=== PATIENT | female | born 1955 | race Caucasian/White ===

== ENCOUNTER 2018-06-05 08:03 | Observation (INO) | payer BC, OTHER ==
[2018-06-05] VITALS (7 sets, daily range): BP systolic 95–123; BP diastolic 56–70
[~2018-06-05] VITALS: Ht 172.7 cm; Wt 59.6 kg
[2018-06-05] MEDS ORDERED: NITROGLYCERIN 2% OINT 1 GM PKT TOP STA (08:05)
[2018-06-05] MEDS ORDERED: ASPIRIN 81 MG CHEW TAB PO STA (08:05)
[2018-06-05] MEDS ORDERED: ASPIRIN 81 MG CHEW TAB PO ONE (08:15)
[2018-06-05] MEDS ORDERED: ALBUTEROL SULF 0.083% NEB SOLN 3 ML NEB ONE (08:19)
[2018-06-05] MEDS ORDERED: IPRATROPIUM BROMIDE 0.02% 2.5 ML NEB ONE (08:19)
[2018-06-05] MEDS ORDERED: MAGNESIUM SULFATE 2GM/50ML 50 ML IV ONE (08:45)
[2018-06-05 08:52] LABS: BASOPHILS # (AUTO) 0.1 (0.0-0.1); BASOPHILS % 0.3 % (0.0-1.0); HEMATOCRIT 43.3 % (34.2-44.1); HEMOGLOBIN 15.2 g/dL (12.0-16.0); LYMPHOCYTES % 3.5 % (18.0-39.1); MEAN CORPUSCULAR HEMOGLOBIN 33.1 pg (28-32); MEAN CORPUSCULAR HGB CONC 35.1 g/dL (31-35); MEAN CORPUSCULAR VOLUME 94.3 fL (81-99); MONOCYTES # (AUTO) 2.1 (0.2-0.8); MONOCYTES % 7.6 % (4.4-11.3); NEUTROPHILS % 87.9 % (38.7-80.0); PLATELET COUNT 234 x10e3/uL (140-360); RED BLOOD COUNT 4.59 x10e6/uL (3.6-5.1); RED CELL DISTRIBUTION WIDTH 13.1 % (11.7-14.4)
[2018-06-05] MEDS ORDERED: METHYLPREDNISOLONE SOD SUCC 125 MG/2ML VIAL IV NR (09:00)
[2018-06-05 09:05] LABS: ALANINE AMINOTRANSFERASE 30 IU/L (0-55); ALBUMIN 3.9 g/dL (3.5-5.0); ALKALINE PHOSPHATASE 78 IU/L (40-150); BLOOD UREA NITROGEN 20 mg/dL (7-26); BUN/CREATININE RATIO 15 (6-25); CALCIUM 10.4 mg/dL (8.4-10.2); CARBON DIOXIDE 27 mmol/L (22-29); CHLORIDE 88 mmol/L (98-107); CREATINE KINASE 52 IU/L (29-168); CREATININE, SERUM 1.33 mg/dL (0.57-1.11); EST GLOMERULAR FILTRATION RATE 40 ML/MIN (60-); GLUCOSE 95 mg/dL (74-118); SODIUM 129 mmol/L (136-145)
[2018-06-05] MEDS ORDERED: AZITHROMYCIN 500MG/NS 250 ML 250 ML IV STA (09:22)
[2018-06-05] MEDS ORDERED: CEFTRIAXONE SOD 1 GM VIAL IM ONE (09:30)
[2018-06-05 09:48] LABS: INR 1.04; PROTHROMBIN TIME 14.5 seconds (11.9-14.5)
[2018-06-05 09:49] LABS: PARTIAL THROMBOPLASTIN TIME 29.7 seconds (23.8-35.5)
[2018-06-05] MEDS ORDERED: SODIUM CHLORIDE 0.9% 500ML 500 ML IV ONE (10:30)
[2018-06-05 10:42] LABS: ABG HCO3 28 mmol/L (23-28); ABG PCO2 43 mmHg (41-51); ABG PH 7.42 (7.31-7.41); ABG PO2 76 mmHg (80-105)
--- NOTE | 2018-06-05 12:08 | Diagnostic Imaging Report ---
EXAM: CT Abdomen and Pelvis WITH contrast INDICATION: Abdominal Pain COMPARISON: None. TECHNIQUE: Abdomen and pelvis were scanned utilizing a multidetector helical scanner from the lung base to the pubic symphysis after administration of IV contrast. Coronal and sagittal reformations were obtained. Routine protocol was performed. Scan was performed when during portal venous phase. IV CONTRAST: Isovue 370 ORAL CONTRAST: Water COMPLICATIONS: None RADIATION DOSE: Total DLP: 209.1 mGy*cm Estimated effective dose: (DLP x 0.015 x size factor) mSv CTDIvol has been reviewed. It is below the limits set by the Radiation Protocol Committee (RPC). FINDINGS: LINES and TUBES: None. LOWER THORAX: There is bronchial wall thickening with bilateral tree-in-bud opacities at the lung bases. HEPATOBILIARY: Diffuse fatty liver. There is a 9 mm arterially enhancing lesion in the right hepatic lobe on series 2, image 19. No biliary ductal dilation. GALLBLADDER: There are stones in the gallbladder. No wall thickening. SPLEEN: No splenomegaly. PANCREAS: No focal masses or ductal dilatation. ADRENALS: No adrenal nodules KIDNEYS/URETERS: Kidneys enhance symmetrically. A 1 cm hypodense lesion in the right upper pole kidney is too small to characterize but likely represents a cyst. No evidence of hydronephrosis or stone. GI TRACT: No evidence of wall thickening or distension. Appendix is not clearly identified. There is however no fat stranding or adenopathy in the right lower quadrant to suggest appendicitis. Moderate hiatal hernia. PELVIC ORGANS/BLADDER: Unremarkable. LYMPH NODES: No lymphadenopathy. VESSELS: There are extensive atherosclerotic disease in the aorta and major arterial branches. PERITONEUM / RETROPERITONEUM: No free air or fluid. BONES AND SOFT TISSUES: Degenerative changes of the visualized spine. CONCLUSION: Cholelithiasis without CT evidence of cholecystitis. Diffuse fatty liver. A 9 mm arterially enhancing lesion in the right hepatic lobe. In a low risk patient, this likely represents a benign finding such as flash filling hemangioma. If the patient is at higher risk for malignancy, a follow-up MRI may be considered in 3-6 months. Signed by: Dr. Daniela Eden MD on 06/05/2018 12:04 PM
[2018-06-05] MEDS ORDERED: AZITHROMYCIN 500MG/NS 250 ML 250 ML IV SCH (12:30)
--- NOTE | 2018-06-05 12:36 | Diagnostic Imaging Report ---
PROCEDURE: A single AP view of the chest. COMPARISON: None. INDICATIONS: CHEST PAIN, SHORTNESS OF BREATH FINDINGS: Lines/tubes: None. Lungs: The lungs are hyperinflated. There is no evidence of pneumonia or pulmonary edema. Two subcentimeter nodular opacities project over the left upper hemithorax. Pleura: There is no pleural effusion or pneumothorax. Heart and mediastinum: The cardiomediastinal silhouette is unremarkable. Bones: No acute bony abnormality. IMPRESSION: Emphysematous changes of the lungs without evidence of pneumonia. Two subcentimeter nodular opacities project over the left hemithorax. These may represent pulmonary nodules and a chest CT is suggested for further evaluation. Dictated by: VIKTORIA BURNS M.D. on 06/05/2018 at 9:03 Electronically approved by: VIKTORIA BURNS M.D. on 06/05/2018 at 9:03
[2018-06-05] MEDS: ALBUTEROL SULF 0.083% NEB SOLN 3 ML NEB NEB SCH ×2 (13:00→19:50)
[2018-06-05 13:02] LABS: ANISOCYTOSIS SLIGHT; LYMPHOCYTES % (MANUAL) 4 % (19-48); MONOCYTES % (MANUAL) 3 % (3.4-9.0); NEUTROPHILS % (MANUAL) 92 % (40-74); PLATELET ESTIMATE ADEQUATE; PLATELET MORPHOLOGY COMMENT NORMAL; RBC MORPHOLOGY COMMENT NORMAL
[2018-06-05 13:44] LABS: CLARITY,URINE SL CLOUDY (CLEAR); COLOR,URINE YELLOW (YELLOW)
[2018-06-05 13:45] LABS: BILIRUBIN,URINE NEGATIVE (NEGATIVE); KETONES,URINE TRACE (NEGATIVE); LEUKOCYTE ESTERASE ,URINE NEGATIVE (NEGATIVE); NITRITE,URINE NEGATIVE (NEGATIVE); PROTEIN,URINE DIPSTICK NEGATIVE (NEGATIVE); URINE UROBILINOGEN 0.2 mg/dL (0.2 - 1)
[2018-06-05 13:57] LABS: BACTERIA,URINE FEW /HPF; EPITHELIAL CELLS,URINE MODERATE /LPF
[2018-06-05] MEDS: METHYLPREDNISOLONE SOD SUCC 125 MG/2ML VIAL IV SCH ×2 (14:00→21:10)
[2018-06-05] MEDS ORDERED: SODIUM CHLORIDE 0.9% 50ML 50 ML ONE (14:05)
[2018-06-05] MEDS ORDERED: IOPAMIDOL 370 MG/ML 200 ML INFUS..BTL INJ ONE (14:05)
[2018-06-05] MEDS ORDERED: LEVAQUIN500 MG PO (14:55)
[2018-06-05] MEDS ORDERED: AMBIEN10 MG PO (14:55)
[2018-06-05] MEDS ORDERED: HYDROCHLOROTHIA25 MG PO (14:55)
[2018-06-05] MEDS ORDERED: PRO-AIR (14:55)
[2018-06-05] MEDS ORDERED: LISINOPRIL10 MG PO (14:55)
[2018-06-05] MEDS ORDERED: VALIUM10 MG PO (14:55)
[2018-06-05] MEDS ORDERED: PREDNISONE20 MG PO (14:55)
[2018-06-05 16:41] LABS: CREATINE KINASE 37 IU/L (29-168)
[2018-06-05] MEDS ORDERED: NON-FORMULARY MEDICATION (Diazepam (Valium) 10 MG) PO SCH (21:00)
[2018-06-05] MEDS: DIAZEPAM 5 MG TAB PO SCH (21:00)
[2018-06-05] MEDS ORDERED: ZOLPIDEM TARTRATE 10 MG TAB PO PRN (21:00)
[2018-06-06 00:23] LABS: CREATINE KINASE 44 IU/L (29-168)
[2018-06-06] MEDS: ALBUTEROL SULF 0.083% NEB SOLN 3 ML NEB NEB SCH ×2 (01:45→07:52)
[2018-06-06 05:00] VITALS: BP 128/77
[2018-06-06 05:34] LABS: BASOPHILS % 0.1 % (0.0-1.0); HEMATOCRIT 34.9 % (34.2-44.1); HEMOGLOBIN 12.3 g/dL (12.0-16.0); LYMPHOCYTES # (AUTO) 0.4 (1.0-3.2); LYMPHOCYTES % 2.2 % (18.0-39.1); MEAN CORPUSCULAR HEMOGLOBIN 32.8 pg (28-32); MEAN CORPUSCULAR HGB CONC 35.2 g/dL (31-35); MEAN CORPUSCULAR VOLUME 93.1 fL (81-99); MONOCYTES # (AUTO) 0.3 (0.2-0.8); MONOCYTES % 1.9 % (4.4-11.3); NEUTROPHILS # (AUTO) 15.1 (2.1-6.9); NEUTROPHILS % 95.2 % (38.7-80.0); PLATELET COUNT 189 x10e3/uL (140-360); RED BLOOD COUNT 3.75 x10e6/uL (3.6-5.1); RED CELL DISTRIBUTION WIDTH 12.9 % (11.7-14.4)
[2018-06-06 05:57] LABS: ANION GAP 13.1 mmol/L (8-16); BLOOD UREA NITROGEN 20 mg/dL (7-26); BUN/CREATININE RATIO 20 (6-25); CALCIUM 9.8 mg/dL (8.4-10.2); CARBON DIOXIDE 30 mmol/L (22-29); CHLORIDE 94 mmol/L (98-107); CREATINE KINASE 43 IU/L (29-168); CREATININE, SERUM 1.02 mg/dL (0.57-1.11); EST GLOMERULAR FILTRATION RATE 55 ML/MIN (60-); GLUCOSE 138 mg/dL (74-118); POTASSIUM 4.1 mmol/L (3.5-5.1); SODIUM 133 mmol/L (136-145)
[2018-06-06] MEDS: METHYLPREDNISOLONE SOD SUCC 125 MG/2ML VIAL IV SCH (06:00)
[2018-06-06 06:58] LABS: LYMPHOCYTES % (MANUAL) 2 % (19-48); MONOCYTES % (MANUAL) 1 % (3.4-9.0); NEUTROPHILS % (MANUAL) 97 % (40-74); PLATELET ESTIMATE ADEQUATE; PLATELET MORPHOLOGY COMMENT NORMAL; RBC MORPHOLOGY COMMENT NORMAL
[2018-06-06 08:09] VITALS: BP 105/62
[2018-06-06 08:32] VITALS: BP 105/62
[2018-06-06] MEDS ORDERED: LISINOPRIL 10 MG TAB PO SCH (09:00)
[2018-06-06] MEDS ORDERED: LISINOPRIL 20 MG TAB PO SCH (09:00)
[2018-06-06] MEDS ORDERED: HYDROCHLOROTHIAZIDE 25 MG TAB PO SCH (09:00)
[2018-06-06] MEDS: DIAZEPAM 5 MG TAB PO SCH (09:12)
[2018-06-06] MEDS ORDERED: PREDNISONE20 MG PO (09:34)
[2018-06-06] MEDS ORDERED: LEVAQUIN500 MG PO (09:35)
--- NOTE | 2018-06-06 09:40 | Diagnostic Imaging Report ---
EXAM: CT Chest WITHOUT contrast INDICATION: \S\pulm nodules on xray \[id number] \S\[id number] COMPARISON: Abdominal CT 06/05/2018 TECHNIQUE: Chest was scanned utilizing a multidetector helical scanner from the lung apex through the level of the adrenal glands without administration of IV contrast. Absence of intravenous contrast decreases sensitivity for detection of lymphadenopathy and vascular pathology. Coronal and sagittal reformations were obtained. Routine protocol was performed. IV CONTRAST: None COMPLICATIONS: None RADIATION DOSE: Total DLP: 321.68 mGy*cm Estimated effective dose: (DLP x 0.014 x size factor) mSv CTDIvol has been reviewed. It is below the limits set by the Radiation Protocol Committee (RPC). FINDINGS: LINES/ TUBES: None. LUNGS AND AIRWAYS: Scattered nodular and tree-in-bud opacities with bronchial wall thickening and scattered areas of mucous plugging. Centrilobular changes noted. No focal consolidations. Secretions in the trachea. PLEURA: The pleural spaces are clear. HEART AND MEDIASTINUM: The thyroid gland is normal. No mediastinal, hilar or axillary lymphadenopathy. The heart is normal in size.. There is no pericardial effusion. Main pulmonary artery measures 2.7 cm, within normal limits. Ascending aorta measures 2.9 cm, within normal limits. Mild aortic calcifications. UPPER ABDOMEN: Small hiatal hernia with distal esophageal wall thickening which may suggest reflux esophagitis. Right retrocrural 1.3 cm cystic structure likely representing a lymphocele of the thoracic duct. New high attenuation within a 0.9 cm previously hypoattenuating structure in the posterior superior pole of the right kidney may represent retained excreted contrast in a calyceal diverticulum or dilated calyx or interval hemorrhage within a cyst. Punctate nonobstructing calculus in the superior left renal pole. Punctate gallstone. BONES: There are degenerative changes in the thoracic spine. SOFT TISSUES: Unremarkable. IMPRESSION: Scattered nodular and tree-in-bud opacities with bronchial wall thickening and mucous plugging in a background of emphysema. Findings suggestive of bronchitis with possible superimposed atypical infection. Recommend follow-up chest CT in 6 months to document resolution and exclude any non-infectious/inflammatory pulmonary nodule. Signed by: DR. Zhang Montesinos MD on 06/06/2018 9:37 AM
[2018-06-06 11:45] VITALS: BP 114/68
--- OUTSIDE RECORDS SUMMARY | 2018-06-16 11:11 | XMS REPORT ---
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 Allergies, Adverse Reactions, Alerts This patient has no known allergies or adverse reactions. Medications This patient has no known medications. Results Test Description Test Time Test Comments Text Results Atomic Results Result Comments CT CHEST WO 2018-06-06 09:05:00 [place] [address] Patient Name: SHIVA RIVAS MR #: [id number] : 1955 Age/Sex: 63/F Req #: [id number] Adm Physician: TI RODRIGUES MD Ordered by: TI RODRIGUES MD Report #: [id number] Location: [facility] Room/Bed: [place] [address] Procedure: [id number] CT/CT CHEST WO Exam Date: 06/06/18 Exam Time: 0841 REPORT STATUS: Signed EXAM: CT Chest WITHOUT contrast INDICATION: COMPARISON: Abdominal CT 06/05/2018 TECHNIQUE: Chest was scanned utilizing a multidetector helical scanner from the lung apex through the level of the a drenal glands without administration of IV contrast. Absence of intravenous contrast decreases sensitivity for detection of lymphadenopathy and vascular pathology. Coronal and sagittal reformations were obtained. Routine protocol was performed. IV CONTRAST: None COMPLICATIONS: None RADIATION DOSE: Total DLP: 321.68 mGy*cm Estimated effective dose: (DLP x 0.014 x size factor) mSv CTDIvol has been reviewed. It is below the limits set by the Radiation Protocol Committee (RPC). FINDINGS: LINES/ TUBES: None. LUNGS AND AIRWAYS: Scattered nodular and tree-in-bud opacities with bronchial wall thickening and scattered areas of mucous plugging. Centrilobular changes noted. No focal consolidations. Secretions in the trachea. PLEURA: The pleural spaces are clear. HEART AND MEDIASTINUM: The thyroid gland is normal. No mediastinal, hilar or axillary lymphadenopathy. The heart is normal in size.. There is no pericard ial effusion. Main pulmonary artery measures 2.7 cm, within normal limits. Ascending aorta measures 2.9 cm, within normal limits. Mild aortic calcifications. UPPER ABDOMEN: Small hiatal hernia with distal esophageal wall thickening which may suggest reflux esophagitis. Right retrocrural 1.3 cm cystic structure likely representing a lymphocele of the thoracic duct. New high attenuation within a 0.9 cm previously hypoattenuating structure in the posterior superior pole of the right kidney may represent retained excreted contrast in a calyceal diverticulum or dilated calyx or interval hemorrhage within a cyst. Punctate nonobstructing calculus in the superior left renal pole. Punctate gallstone. BONES: There are degenerative changes in the thoracic spine. SOFT TISSUES: Unremarkable. IMPRESSION: Scattered nodular and tree-in-bud opacities with bronchial wall thickening and mucous plugging in a background of emphysema. Findings suggestive of bronchitis with possible superimposed atypical infection. Recommend follow-up chest CT in 6 months to document resolution and exclude any non-infectious/inflammatory pulmonary nodule. Signed by: DR. Zhang Soares MD on 06/06/2018 9:37 AM Dictated By: ZHANG SOARES MD 6 Transcribed By: MELANY on 06/06/18936 COPY TO: TI RODRIGUES MD CT ABDOMEN/PELVIS W 2018-06-05 11:50:00 [place] [address] Patient Name: SHIVA RIVAS MR #: [id number] : 1955 Age/Sex: 63/F Req #: [id number] [facility] Physician: Ordered by: HAZEL COOK MD Report #: [id number] Location: ER Room/Bed: Procedure: [id number] CT/CT ABDOMEN/PELVIS W Exam Date: 06/05/18 Exam Time: 1110 REPORT STATUS: Signed EXAM: CT Abdomen and Pelvis WITH contrast INDICATION: Abdominal Pain COMPARISON: None. TECHNIQUE: Abdomen and pelvis were scanned utilizing a multidetector helical scanner from the lung base to the pubic symphysis after administration of IV contrast. Coronal and sagittal reformations were obtained. Routine protocol was performed. Scan was performed when during portal venous phase. IV CONTRAST: Isovue 370 ORAL CONTRAST: Water COMPLICATIONS: None RADIATION DOSE: Total DLP: 209.1 mGy*cm Estimated effective dose: (DLP x 0.015 x size factor) mSv CTDIvol has been reviewed. It is below the limits set by the Radiation Protocol Committee (RPC). FINDINGS: LINES and TUBES: None. LOWER THORAX: There is bronchial wall thickening with bilateral tree-in-bud opacities at the lung bases. HEPATOBILIARY: Diffuse fatty liver. There is a 9 mm arterially enhancing lesion in the right hepatic lobe on series 2, image 19. No biliary ductal dilation. GALLBLADDER: There are stones in the gallbladder. No wall thickening. SPLEEN: No splenomegaly. PANCREAS: No focal masses or ductal dilatation. ADRENALS: No adrenal nodules KIDNEYS/URETERS: Kidneys enhance symmetrically. A 1 cm hypodense lesion in the right upper pole kidney is too small to characterize but likely represents a cyst. No evidence of hydronephrosis or stone. GI TRACT: No evidence of wall thickening or distension. Appendix is not clearly identified. There is however no fat stranding or adenopathy in the right lower quadrant to suggest appendicitis. Moderate hiatal hernia. PELVIC ORGANS/BLADDER: Unremarkable. LYMPH NODES: No lymphadenopathy. VESSELS: There are extensive atherosclerotic disease in the aorta and major arterial branches. PERITONEUM / RETROPERITONEUM: No free air or fluid. BONES AND SOFT TISSUES: Degenerative changes of the visualized spine. CONCLUSION: Cholelithiasis without CT evidence of cholecystitis. Diffuse fatty liver. A 9 mm arterially enhancing lesion in the right hepatic lobe. In a low risk patient, this likely represents a benign finding such as flash filling hemangioma. If the patient is at higher risk for malignancy, a follow-up MRI may be considered in 3-6 months. Signed by: Dr. Viktoria Burns MD on 06/05/2018 12:04 PM Dictated By: VIKTORIA BURNS MD 1204 Transcribed By: MELANY on 06/05/18 120 COPY TO: HAZEL COOK MD CHEST SINGLE (PORTABLE) 2018-06-05 09:03:00 [place] [address] Patient Name: SHIVA RIVAS MR #: [id number] : 1955 Age/Sex: 63/F Req #: [id number] Adm Physician: Ordered by: HAZEL COOK MD Report #: [id number] Location: ER Room/Bed: Procedure: [id number] DX/CHEST SINGLE (PORTABLE) Exam Date: 06/05/18 Exam Time: 0810 REPORT STATUS: Signed PROCEDURE: A single AP view of the chest. COMPARISON: None. INDICATIONS: CHEST PAIN, SHORTNESS OF BREATH FINDINGS: Lines/tubes: None. Lungs: The lungs are hyperinflated. There is no evidence of pneumonia or pulmonary edema. Two subcentimeter nodular opacities project over the left upper hemithorax. Pleura: There is no pleural effusion or pneumothorax. Heart and mediastinum: The cardiomediastinal silhouette is unremarkable. Bones: No acute bony abnormality. IMPRESSION: Emphysematous changes of the lungs without evidence of pneumonia. Two subcentimeter nodular opacities project over the left hemithorax. These may represent pulmonary nodules and a chest CT is suggested for further evaluation. Dictated by: VIKTORIA BURNS M.D. on 06/05/2018 at 9:03 Electronically approved by: VIKTORIA BURNS M.D. on 06/05/2018 at 9:03 Dictated By: VIKTORIA BURNS MD 2 Transcribed By: EDU on 06/05/18902 COPY TO: HAZEL COOK MD
--- NOTE | 2018-08-15 19:24 | Discharge Summary ---
DISCHARGE DIAGNOSIS: Acute exacerbation of chronic obstructive pulmonary disease. HISTORY OF PRESENT ILLNESS AND HOSPITAL COURSE: Patient is a 63-year-old lady who presented with acute onset of cough and congestion for few days with a history of COPD where she was having acute exacerbation of COPD. She was brought in and placed on O2, nebs, steroids, and IV antibiotics where she made significant improvement. She was able to be discharged home in good condition to follow up in 1 to 2 weeks with me. Please see hospital chart for full details. TI RODRIGUES MD Job#: [id number] ASHLEY
== END 2018-06-06 12:35 | disposition home or self-care (01) ==
LOC: ER 08:03 → ERHOLD 12:43 → IMCU 14:26
PROVIDERS: ADMIT Internal Medicine; ATTEND Internal Medicine
DX: J44.1 Chronic obstructive pulmonary disease with (acute) exacerbation (principal); F17.210 Nicotine dependence, cigarettes, uncomplicated; M79.10 Myalgia, unspecified site; I10 Essential (primary) hypertension; Z82.49 Family history of ischemic heart disease and other diseases of the circulatory system; Z88.5 Allergy status to narcotic agent
CPT/HCPCS: 36415 ×2; 71045; 71250; 74177; 80048; 80053; 81001; 82550 ×2; 82553 ×2; 82805; 83605; 83690; 83880; 84484 ×2; 85025 ×2; 85610; 85730; 87040; 93005; 94640 ×4; 94660 ×2; 99284; G0378 ×2; J0456; J0696; J2930 ×2; J7040; Q9967; 36600; J3475

== ENCOUNTER 2018-11-16 11:05 | Emergency (ER) | payer OTHER ==
[~2018-11-16] VITALS: Ht 172.7 cm; Wt 59.4 kg
[~2018-11-16 11:05] MED LIST: AMBIEN10 MG PO; HYDROCHLOROTHIA25 MG PO; LEVAQUIN500 MG PO; LISINOPRIL10 MG PO; PREDNISONE20 MG PO; PRO-AIR; VALIUM10 MG PO
[2018-11-16] MEDS ORDERED: ASPIRIN 325 MG TAB PO ONE (11:15)
[2018-11-16 11:33] LABS: BASOPHILS % 0.3 % (0.0-1.0); EOSINOPHILS # (AUTO) 0.1 (0.0-0.4); EOSINOPHILS % 0.7 % (0.0-6.0); HEMATOCRIT 42.5 % (34.2-44.1); HEMOGLOBIN 14.7 g/dL (12.0-16.0); LYMPHOCYTES % 7.1 % (18.0-39.1); MEAN CORPUSCULAR HGB CONC 34.6 g/dL (31-35); MEAN CORPUSCULAR VOLUME 92.4 fL (81-99); MONOCYTES # (AUTO) 1.3 (0.2-0.8); MONOCYTES % 9.3 % (4.4-11.3); NEUTROPHILS # (AUTO) 11.3 (2.1-6.9); NEUTROPHILS % 82.2 % (38.7-80.0); PLATELET COUNT 247 x10e3/uL (140-360); RED CELL DISTRIBUTION WIDTH 12.8 % (11.7-14.4)
[2018-11-16 11:40] LABS: INR 0.91; PROTHROMBIN TIME 12.7 seconds (11.9-14.5)
[2018-11-16 11:41] LABS: PARTIAL THROMBOPLASTIN TIME 26.7 seconds (23.8-35.5)
[2018-11-16 11:49] LABS: ALANINE AMINOTRANSFERASE 118 IU/L (0-55); ALBUMIN 3.4 g/dL (3.5-5.0); ALBUMIN/GLOBULIN RATIO 0.8 (0.8-2.0); ALKALINE PHOSPHATASE 83 IU/L (40-150); ANION GAP 14.8 mmol/L (8-16); BLOOD UREA NITROGEN 19 mg/dL (7-26); BUN/CREATININE RATIO 16 (6-25); CALCIUM 9.3 mg/dL (8.4-10.2); CARBON DIOXIDE 32 mmol/L (22-29); CHLORIDE 87 mmol/L (98-107); CREATINE KINASE 53 IU/L (29-168); CREATININE, SERUM 1.22 mg/dL (0.57-1.11); EST GLOMERULAR FILTRATION RATE 45 ML/MIN (60-); GLUCOSE 80 mg/dL (74-118); POTASSIUM 3.8 mmol/L (3.5-5.1); SODIUM 130 mmol/L (136-145)
--- NOTE | 2018-11-16 13:07 | Diagnostic Imaging Report ---
EXAM: CHEST 2 VIEWS DATE: 11/16/2018 11:22 AM INDICATION: Chest pain COMPARISON: Chest CT, 06/06/2018 FINDINGS: Lines and tubes: None Heart size normal. No focal pulmonary opacity, pleural effusion or pneumothorax. The lungs are hyperinflated compatible with COPD or airway disorder. Upper abdomen unremarkable. No acute bony abnormality. IMPRESSION: No evidence for acute disease. Hyperinflation of the lungs, similar to the previous exam, compatible with COPD or bronchitis. No consolidative pneumonia or pleural effusion. Signed by: Dr. Venancio Pitt M.D. on 11/16/2018 1:04 PM
[2018-11-16] MEDS ORDERED: SODIUM CHLORIDE 0.9% 250ML 500 ML ONE (14:03)
--- NOTE | 2018-11-16 16:06 | Diagnostic Imaging Report ---
EXAMINATION: CT scan of the chest with contrast. TECHNIQUE: Helical CT images of the chest were performed from the lung apices to the level of the adrenal glands after the intravenous administration of 100 cc of Isovue 300. Coronal and sagittal reformatted images were obtained. Dose modulation, iterative reconstruction, and/or weight based adjustment of the mA/kV was utilized to reduce the radiation dose to as low as reasonably achievable. COMPARISON: None. CLINICAL HISTORY:Chest pain, evaluate for pulmonary embolism DISCUSSION: LINES/TUBES: None. LUNGS AND AIRWAYS: Centrilobular emphysema. Scattered tree-in-bud nodularity in a peripheral distribution most prominent in the right lower lobe, lingula, and left lower lobe. No pulmonary embolism. PLEURA: No pneumothorax or pleural effusions. HEART AND MEDIASTINUM: The thyroid gland is normal. The heart and pericardium are within normal limits. LYMPH NODES: There is no mediastinal, hilar or axillary lymphadenopathy. ABDOMEN: Limited contrast-enhanced views of the upper abdomen show no abnormality within the visualized liver, spleen, pancreas, or kidneys. The adrenal glands are normal. BONES AND SOFT TISSUES: No acute bony abnormalities. IMPRESSION: No pulmonary embolism. Pulmonary emphysema. Tree-in-bud nodular opacities within the lungs may reflect chronic aspiration or bronchiolitis including SEYMOUR infection. Signed by: Dr. Kirk Reaves M.D. on 11/16/2018 4:03 PM
[2018-11-16 16:12] LABS: AMPHETAMINES SCREEN,URINE NEGATIVE (NEGATIVE); BENZODIAZEPINES SCREEN,URINE POSITIVE (NEGATIVE); BILIRUBIN,URINE NEGATIVE (NEGATIVE); CLARITY,URINE CLEAR (CLEAR); COLOR,URINE YELLOW (YELLOW); KETONES,URINE NEGATIVE (NEGATIVE); LEUKOCYTE ESTERASE ,URINE NEGATIVE (NEGATIVE); NITRITE,URINE NEGATIVE (NEGATIVE); PHENCYCLIDINE SCREEN,URINE NEGATIVE (NEGATIVE); PROTEIN,URINE DIPSTICK NEGATIVE (NEGATIVE); URINE UROBILINOGEN 0.2 mg/dL (0.2 - 1)
[2018-11-16] MEDS ORDERED: IOPAMIDOL 370 MG/ML 200 ML INFUS..BTL INJ ONE (22:26)
[2018-11-16] MEDS ORDERED: SODIUM CHLORIDE 0.9% 50ML 50 ML ONE (22:26)
== END 2018-11-16 18:45 | disposition home or self-care (01) ==
LOC: ER 11:05
DX: R07.2 Precordial pain (principal); R06.00 Dyspnea, unspecified; R11.2 Nausea with vomiting, unspecified; I10 Essential (primary) hypertension; J44.9 Chronic obstructive pulmonary disease, unspecified; F17.210 Nicotine dependence, cigarettes, uncomplicated
CPT/HCPCS: 36415; 71046; 71260; 80053; 80307; 81001; 82550; 82553; 83880; 84484; 85025; 85379; 85610; 85730; 99284; J7050; Q9967

== ENCOUNTER 2019-07-02 10:43 | Observation (INO) | payer OTHER ==
[~2019-07-02] VITALS: Ht 175.3 cm; Wt 58.3 kg
[2019-07-02] MEDS ORDERED: IPRATROPIUM BROMIDE 0.02% 2.5 ML NEB NEB STA (10:51)
[2019-07-02] MEDS ORDERED: SODIUM CHLORIDE 0.9% 1000ML 1,000 ML IV STA (10:51)
[2019-07-02 11:38] LABS: BASOPHILS % 0.3 % (0.0-1.0); EOSINOPHILS % 0.5 % (0.0-6.0); HEMATOCRIT 43.7 % (34.2-44.1); HEMOGLOBIN 15.6 g/dL (12.0-16.0); LYMPHOCYTES # (AUTO) 0.6 (1.0-3.2); LYMPHOCYTES % 10.8 % (18.0-39.1); MEAN CORPUSCULAR HGB CONC 35.7 g/dL (31-35); MEAN CORPUSCULAR VOLUME 92.4 fL (81-99); MONOCYTES # (AUTO) 0.7 (0.2-0.8); MONOCYTES % 11.6 % (4.4-11.3); NEUTROPHILS # (AUTO) 4.5 (2.1-6.9); NEUTROPHILS % 76.5 % (38.7-80.0); PLATELET COUNT 176 x10e3/uL (140-360); RED BLOOD COUNT 4.73 x10e6/uL (3.6-5.1); RED CELL DISTRIBUTION WIDTH 12.8 % (11.7-14.4)
[2019-07-02 12:05] LABS: ABG HCO3 29 mmol/L (23-28); ABG PCO2 45 mmHg (41-51); ABG PH 7.42 (7.31-7.41); ABG PO2 73 mmHg (80-105)
[2019-07-02 12:13] LABS: ALANINE AMINOTRANSFERASE 40 IU/L (0-55); ALBUMIN 3.9 g/dL (3.5-5.0); ALBUMIN/GLOBULIN RATIO 1.5 (0.8-2.0); ALKALINE PHOSPHATASE 62 IU/L (40-150); ANION GAP 13.8 mmol/L (8-16); BLOOD UREA NITROGEN 23 mg/dL (7-26); BUN/CREATININE RATIO 21 (6-25); CALCIUM 9.4 mg/dL (8.4-10.2); CARBON DIOXIDE 31 mmol/L (22-29); CHLORIDE 84 mmol/L (98-107); CREATININE, SERUM 1.11 mg/dL (0.57-1.11); EST GLOMERULAR FILTRATION RATE 49 ML/MIN (60-); GLUCOSE 99 mg/dL (74-118); POTASSIUM 3.8 mmol/L (3.5-5.1); SODIUM 125 mmol/L (136-145)
[2019-07-02 12:25] LABS: CREATINE KINASE 63 IU/L (29-168)
[2019-07-02 13:42] LABS: BILIRUBIN,URINE NEGATIVE (NEGATIVE); CLARITY,URINE CLEAR (CLEAR); COLOR,URINE YELLOW (YELLOW); KETONES,URINE NEGATIVE (NEGATIVE); LEUKOCYTE ESTERASE ,URINE NEGATIVE (NEGATIVE); NITRITE,URINE NEGATIVE (NEGATIVE); PROTEIN,URINE DIPSTICK NEGATIVE (NEGATIVE); URINE UROBILINOGEN 0.2 mg/dL (0.2 - 1)
[2019-07-02 13:59] LABS: EPITHELIAL CELLS,URINE FEW /LPF; RBC,URINE 0-5 /HPF (0-5)
[2019-07-02 14:03] LABS: BACTERIA,URINE MODERATE /HPF
[2019-07-02] MEDS ORDERED: SODIUM CHLORIDE 0.9% 50ML 50 ML ONE (15:11)
[2019-07-02] MEDS ORDERED: IOPAMIDOL 370 MG/ML 200 ML INFUS..BTL INJ ONE (15:11)
--- NOTE | 2019-07-02 15:13 | Diagnostic Imaging Report ---
TECHNIQUE: CT of the chest WITH intravenous contrast (pulmonary embolism protocol). Dose modulation, iterative reconstruction, and/or weight-based adjustment of the mA/kV was utilized to reduce the radiation dose to as low as reasonably achievable. INDICATION: 64-year-old woman with hypoxia. COMPARISON: Chest CT 11/16/2018. FINDINGS: LINES/TUBES: None. PULMONARY ARTERIES: Proximal to the bifurcation of the main pulmonary artery, the main pulmonary artery is 2.2 cm in diameter. No filling defects within the pulmonary arteries to suggest pulmonary embolus. LUNGS AND AIRWAYS: Moderate emphysema with biapical pleural-parenchymal scarring. Bronchial wall thickening with trace mucus/debris scattered in the airways. Mild tree-in-bud/centrilobular nodular opacities bilaterally. PLEURA: The pleural spaces are clear. HEART AND MEDIASTINUM: The visualized thyroid gland is normal. No significant mediastinal, hilar, or axillary lymphadenopathy. The heart and pericardium are within normal limits. Moderate hiatal hernia. SOFT TISSUES AND BONES: Degenerative changes of the visualized spine. Soft tissues are unremarkable. UPPER ABDOMEN: Questionable nodular contour of the partially visualized left hepatic lobe; cirrhosis cannot be excluded. 1.1 x 1.2 cm cyst in the right kidney. IMPRESSION: No pulmonary embolus. Pulmonary findings suggestive of infectious bronchitis/bronchiolitis versus aspiration. Moderate emphysema. Signed by: Hu Zee MD on 07/02/2019 3:09 PM
[2019-07-02] MEDS: ALBUTEROL SULF 0.083% NEB SOLN 3 ML NEB NEB SCH ×2 (19:45→23:30)
[2019-07-02] MEDS: SODIUM CHLORIDE 0.9% 1000ML 1,000 ML IV SCH ×2 (20:03→23:10)
[2019-07-02] MEDS: METHYLPREDNISOLONE SOD SUCC 40 MG/ML VIAL 1ML IV SCH ×2 (20:03→23:10)
[2019-07-02 20:38] LABS: CREATINE KINASE 60 IU/L (29-168)
[2019-07-02 21:50] VITALS: BP 113/71
[2019-07-02 22:31] VITALS: BP 113/71
[2019-07-02] MEDS: ZOLPIDEM TARTRATE 10 MG TAB PO PRN (23:10)
[2019-07-03] VITALS (9 sets, daily range): BP systolic 102–117; BP diastolic 61–86
--- NOTE | 2019-07-03 02:03 | History and Physical ---
This 64-year-old female with hypoxia and also near syncopal episode. HISTORY OF PRESENTING ILLNESS: This is Ms. Kathy Velásquez who started with shortness of breath was seen in the office. The patient was given albuterol Atrovent treatments. The patient did not feel better, did continue to have shortness of breath, and the patient was sent to the emergency room. At the office, the patient's pulse ox was about 70%, but at the ER status post treatment the patient's pulse ox got up to 98%, was admitted to the hospital for acute COPD exacerbation. The patient is a smoker. PAST MEDICAL HISTORY: History of thyrotoxicosis. The patient has history of anxiety, history of chronic kidney disease, history of hyperlipidemia, history of COPD, history of insomnia, and history of hypertensive heart disease. MEDICATIONS: Include nortriptyline 10 mg 1 to 2 capsules at nighttime, lisinopril 20 mg once a day, zolpidem 10 mg at nighttime, Valium 10 mg one tablet twice a day p.r.n., hydrochlorothiazide 25 mg daily, and prednisone from time to time. OTHER MEDICAL HISTORY: Includes coronary artery disease, COPD, CKD, and old VT. SURGICAL HISTORY: Hysterectomy. ALLERGIES: ALLERGIC TO TETRACYCLINE AND PAIN PILLS. FAMILY HISTORY: The patient's father is . Mother is also . SOCIAL HISTORY: Tobacco, 21 to 30 cigarettes a day. REVIEW OF SYSTEMS: Negative for chest pain. Positive shortness of breath. Positive for near syncopal episodes. No nausea, vomiting, or diarrhea. No constipation. No rectal bleeding. No diplopia. No blurry vision. PHYSICAL EXAMINATION: GENERAL: The patient is alert and oriented x3. VITAL SIGNS: Temperature is 98.2, pulse of 71, respirations 16, blood pressure is 98/62 with a pulse oximetry of 99% on 2 L of oxygen. CVS: S1 and S2 normal. Distant. LUNGS: Decreased air entry into lung vicente. Positive for rhonchi bilaterally. Inspiratory wheezes bilaterally. ABDOMEN: Nontender, nondistended. EXTREMITIES: Positive for clubbing. No edema. LABORATORY VALUES: Initial white count is 5.84, hemoglobin of 15.6, neutrophil count of 76.7. Chemistry shows sodium of 125, potassium is 3.8, BUN of 23, creatinine of 1.11. Urine negative except for moderate bacteria . Influenza A and B negative. IMAGING STUDIES: Chest CT which is done here shows moderate emphysema, pulmonary findings suggestive of infectious bronchitis and no pulmonary embolism. ASSESSMENT: This 64-year-old female with acute bronchitis, hypoxia, emphysema, history of hypertension with hypertensive episodes, hyperlipidemia, insomnia, and anxiety. The patient is currently on albuterol and Atrovent treatments, Solu-Medrol 40 mg every 6 hours have been started. The patient is on sodium chloride. Hyponatremia. We will check a sodium again. CBC does not show any leukocytosis. We will hold back on antibiotics at this time. Further recommendation per clinical course. We will continue to monitor the patient and restart home medications. MD JANNET Lee/TARA /[id number]
[2019-07-03] MEDS: ALBUTEROL SULF 0.083% NEB SOLN 3 ML NEB NEB SCH ×5 (03:00→19:00)
[2019-07-03] MEDS: METHYLPREDNISOLONE SOD SUCC 40 MG/ML VIAL 1ML IV SCH ×3 (05:06→16:25)
[2019-07-03 05:25] LABS: HEMOGLOBIN 12.6 g/dL (12.0-16.0); LYMPHOCYTES # (AUTO) 0.2 (1.0-3.2); MEAN CORPUSCULAR HEMOGLOBIN 32.9 pg (28-32); MONOCYTES # (AUTO) 0.1 (0.2-0.8); MONOCYTES % 1.3 % (4.4-11.3); NEUTROPHILS # (AUTO) 3.5 (2.1-6.9); NEUTROPHILS % 94.2 % (38.7-80.0); PLATELET COUNT 155 x10e3/uL (140-360); RED BLOOD COUNT 3.83 x10e6/uL (3.6-5.1); RED CELL DISTRIBUTION WIDTH 12.6 % (11.7-14.4)
[2019-07-03 05:39] LABS: CREATINE KINASE 65 IU/L (29-168)
[2019-07-03 05:47] LABS: ANION GAP 10.5 mmol/L (8-16); BLOOD UREA NITROGEN 13 mg/dL (7-26); BUN/CREATININE RATIO 15 (6-25); CALCIUM 8.4 mg/dL (8.4-10.2); CARBON DIOXIDE 29 mmol/L (22-29); CHLORIDE 90 mmol/L (98-107); CREATININE, SERUM 0.88 mg/dL (0.57-1.11); EST GLOMERULAR FILTRATION RATE > 60 ML/MIN (60-); GLUCOSE 131 mg/dL (74-118); POTASSIUM 3.5 mmol/L (3.5-5.1); SODIUM 126 mmol/L (136-145)
[2019-07-03] MEDS ORDERED: DOXYCYCLINE 100MG/NS 100ML 100 ML IV SCH (07:15)
[2019-07-03 07:41] LABS: LYMPHOCYTES % (MANUAL) 1 % (19-48); NEUTROPHILS % (MANUAL) 98 % (40-74)
[2019-07-03 07:42] LABS: PLATELET ESTIMATE ADEQUATE; PLATELET MORPHOLOGY COMMENT NORMAL; RBC MORPHOLOGY COMMENT NORMAL
--- NOTE | 2019-07-03 08:17 | Progress Note ---
DATE: SUBJECTIVE: The patient is a 64-year-old lady with end-stage COPD, O2 dependent and steroid dependent at this time. Continues to have some shortness of breath. Wants to go home. The patient is complaining of shortness of breath though and wheezing. OBJECTIVE: VITAL SIGNS: Temperature is 96.9, pulse of 86. The patient's respiratory rate is 16, blood pressure is 104/86, pulse oximetry of 95% on O2 of 2 L. HEENT: Normocephalic, atraumatic. Cachectic. CVS: S1 and S2 normal. Distant. LUNGS: Decreased air entry. Positive for wheezing bilaterally. ABDOMEN: Nontender, nondistended. EXTREMITIES: No clubbing, no cyanosis, no edema. LABORATORY VALUES: Today's white count is 3.75, neutrophil count is 94.2, lymphocytes 4.0. Chemistry show a sodium of 126, potassium of 3.5, BUN of 13, creatinine 0.88. Troponins have trended to be negative. ASSESSMENT: Acute chronic obstructive pulmonary disease exacerbation. Plan would be to continue with the steroids. She is on Solu-Medrol 40 mg q.6 hours. We will taper down to 40 mg twice a day. Zolpidem at nighttime for insomnia. We will also start some doxycycline 100 mg IV daily b.i.d. for her chronic obstructive pulmonary disease exacerbation. Continue breathing treatments. Further recommendation per clinical course. The patient will continue on her home medications for blood pressure. We will follow up the patient tomorrow and possible discharge in 1 to 2 days. MD JANNET Lee/MODL /[id number]
[2019-07-03] MEDS: LISINOPRIL 10 MG TAB PO SCH (08:30)
[2019-07-03] MEDS: SODIUM CHLORIDE 1 GM TAB PO SCH (08:30)
[2019-07-03] MEDS: SODIUM CHLORIDE 0.9% 1000ML 1,000 ML IV SCH ×2 (08:30→20:56)
--- NOTE | 2019-07-03 13:12 | NUR ---
Nutrition Screen Note RD Recommendation for Physician: Continue diet as ordered Plan of Care: RD following, monitoring for tolerance and adequacy Nutrition reason for involvement: (MD Consult, RN Consult, Nutrition Risk Trigger -BMI 18 Primary Diagnose(s):COPD Hypoxia PMH: Thyrotoxicosis, COPD, HTN,[place], hyperlipidemia, CKD Ht:69 in Wt:122lb BMI:18 kg/m2 IBW:145lb +/-10% RD Assessment: (07/03/2019) Chart reviewed. Labs and meds reviewed. Initial encounter with patient. 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 Pt stating 10 pound Wt loss due to thyroid over past year. Nutrition - focused physical exam with no significant loss of lean body mass or subcutaneous fat. Po intake is adequate. Pt denies any N,V, D nor has any difficulty chewing or swallowing. No known food allergies. Current Diet: Cardiac diet Malnutrition Evaluation (07/03/2019) The patient does not meet criteria for a specified degree of malnutrition at this time. Will re-evaluate at follow-up as appropriate. Diet Education Needs Assessment: Diet education not indicated. Nutrition Care Level: Low Signed: Jason Moy RD, LD, [facility]
[2019-07-03 14:22] LABS: CREATINE KINASE MB 2.2 ng/mL (0-5.0)
[2019-07-03] MEDS: DOXYCYCLINE HYCLATE TABLET 100 MG TAB PO SCH (20:56)
[2019-07-03] MEDS: ZOLPIDEM TARTRATE 10 MG TAB PO PRN (20:56)
[2019-07-04] VITALS: BP 90/54
[2019-07-04] MEDS: ALBUTEROL SULF 0.083% NEB SOLN 3 ML NEB NEB SCH ×3 (03:30→07:15)
[2019-07-04 04:00] VITALS: BP 104/60
[2019-07-04 05:37] LABS: BASOPHILS % 0.1 % (0.0-1.0); HEMATOCRIT 35.9 % (34.2-44.1); HEMOGLOBIN 12.1 g/dL (12.0-16.0); LYMPHOCYTES # (AUTO) 0.5 (1.0-3.2); MEAN CORPUSCULAR HEMOGLOBIN 33.2 pg (28-32); MEAN CORPUSCULAR HGB CONC 33.7 g/dL (31-35); MONOCYTES # (AUTO) 0.8 (0.2-0.8); NEUTROPHILS # (AUTO) 8.6 (2.1-6.9); NEUTROPHILS % 86.5 % (38.7-80.0); PLATELET COUNT 151 x10e3/uL (140-360); RED BLOOD COUNT 3.64 x10e6/uL (3.6-5.1); RED CELL DISTRIBUTION WIDTH 12.8 % (11.7-14.4)
[2019-07-04 05:41] LABS: MEAN CORPUSCULAR VOLUME 98.6 fL (81-99)
[2019-07-04 06:00] LABS: ANION GAP 10.8 mmol/L (8-16); BLOOD UREA NITROGEN 15 mg/dL (7-26); BUN/CREATININE RATIO 20 (6-25); CALCIUM 8.5 mg/dL (8.4-10.2); CARBON DIOXIDE 29 mmol/L (22-29); CHLORIDE 94 mmol/L (98-107); CREATININE, SERUM 0.76 mg/dL (0.57-1.11); EST GLOMERULAR FILTRATION RATE > 60 ML/MIN (60-); GLUCOSE 98 mg/dL (74-118); POTASSIUM 3.8 mmol/L (3.5-5.1); SODIUM 130 mmol/L (136-145)
[2019-07-04 07:40] VITALS: BP 107/61
[2019-07-04] MEDS ORDERED: DOXYCYCLINE HY100 MG PO (07:41)
[2019-07-04] MEDS ORDERED: duoneb INH (07:42)
[2019-07-04] MEDS ORDERED: PROAIR HFA INH8.5 GM INH (07:43)
[2019-07-04] MEDS ORDERED: medrol dose pack (07:45)
[2019-07-04 07:50] VITALS: BP 107/61
[2019-07-04] MEDS: METHYLPREDNISOLONE SOD SUCC 40 MG/ML VIAL 1ML IV SCH (08:00)
[2019-07-04] MEDS: DOXYCYCLINE HYCLATE TABLET 100 MG TAB PO SCH (08:00)
[2019-07-04] MEDS: SODIUM CHLORIDE 1 GM TAB PO SCH (08:00)
[2019-07-04] MEDS: LISINOPRIL 10 MG TAB PO SCH (08:08)
--- NOTE | 2019-07-04 08:10 | NUR ---
patient alert and oriented. discharge instructions given at this time, patient verbalized understanding. IV discontinued, catheter in tact and small dressing applied. patient to be wheeled out to personal auto for sister drive home.
--- NOTE | 2019-07-04 10:33 | Progress Note ---
DATE: SUBJECTIVE: The patient is a 64-year-old lady comes in with COPD exacerbation. The patient is still coughing, still congested, wants to go home and does not want to stay in the hospital. I did talk to the patient about exacerbation and that it would be better to in the hospital, but the patient decided that she wants to go home and we will go and discharge her today on medications. OBJECTIVE: VITAL SIGNS: Temperature is 97.3, pulse of 89, respirations of 20, blood pressure is 104/60, pulse oximetry of 96, and the patient is O2 dependent and 2 L of oxygen. HEENT: Normocephalic, atraumatic. Edentulous. CVS: S1 and S2 normal. LUNGS: Decreased air entry plus positive for scattered inspiratory wheezes. ABDOMEN: Nontender and nondistended, scaphoid. EXTREMITIES: Positive for clubbing. No cyanosis. No edema. The patient does have generalized atrophy present. ASSESSMENT AND PLAN: 1. Ms. Kathy Velásquez is a 64-year-old with chronic obstructive pulmonary disease exacerbation. 2. Moderate protein energy malnutrition. 3. Hypertension. 4. Chronic obstructive pulmonary disease and hyponatremia, which is corrected with possible SIADH. Further recommendation outpatient, the patient will be discharged on doxycycline 100 mg twice a day and also Medrol Dosepak, which we will start. Albuterol and Atrovent treatments and a prescription for nebulizer will be written to. Further recommendation per clinical course. The patient followup with her primary care physician, Dr. Stevens again. Discharge is not recommended, but the patient wants to go home. MD JANNET Lee/MODL /[id number]
== END 2019-07-04 08:10 | disposition home or self-care (01) ==
LOC: ER 10:45 → ERHOLD 15:24 → IMCU 21:43
PROVIDERS: ADMIT Family Medicine; ATTEND Family Medicine
DX: J44.1 Chronic obstructive pulmonary disease with (acute) exacerbation (principal); R09.02 Hypoxemia; E87.1 Hypo-osmolality and hyponatremia; Z88.5 Allergy status to narcotic agent; R55 Syncope and collapse; J44.0 Chronic obstructive pulmonary disease with (acute) lower respiratory infection; J20.9 Acute bronchitis, unspecified; E78.5 Hyperlipidemia, unspecified; G47.00 Insomnia, unspecified; F41.9 Anxiety disorder, unspecified; F17.210 Nicotine dependence, cigarettes, uncomplicated; Z99.81 Dependence on supplemental oxygen; Z79.1 Long term (current) use of non-steroidal anti-inflammatories (NSAID); Z79.52 Long term (current) use of systemic steroids; E44.0 Moderate protein-calorie malnutrition; Z68.1 Body mass index [BMI] 19.9 or less, adult
CPT/HCPCS: 36415 ×3; 36600; 71260; 80048 ×2; 80053; 81001; 82550 ×2; 82553 ×2; 82805; 83880; 84484 ×2; 85025 ×3; 87400; 93005; 94640 ×6; 99284; G0378 ×3; J2920 ×3; J7030 ×2; Q9967

== ENCOUNTER 2021-09-04 10:39 | Inpatient (IN) | payer MEDICARE, OTHER ==
[~2021-09-04] VITALS: Ht 162.6 cm; Wt 59.9 kg
[~2021-09-04 10:39] MED LIST changes: +DIAZEPAM10 MG; +DOXYCYCLINE HY100 MG PO; +PROAIR HFA INH8.5 GM INH; +duoneb INH; +medrol dose pack
[2021-09-04] MEDS ORDERED: SODIUM CHLORIDE 0.9% 1000ML 1,000 ML IV STA (10:46)
[2021-09-04] MEDS ORDERED: DEXAMETHASONE SOD PHOS 10 MG/1 ML VIAL IV ONE (11:00)
[2021-09-04] MEDS ORDERED: ALBUTEROL/IPRATROPIUM 3 ML NEB NEB ONE (11:00)
[2021-09-04] MEDS: CEFTRIAXONE 2 GM in SODIUM CHLORIDE 0.9% 100 ML IV SCH (11:22)
[2021-09-04 11:26] LABS: BASOPHILS % 0.2 % (0.0-1.0); EOSINOPHILS % 0.4 % (0.0-6.0); HEMATOCRIT 41.1 % (34.2-44.1); HEMOGLOBIN 13.3 g/dL (12.0-16.0); LYMPHOCYTES # (AUTO) 0.7 (1.0-3.2); LYMPHOCYTES % 13.9 % (18.0-39.1); MEAN CORPUSCULAR HEMOGLOBIN 31.8 pg (28-32); MEAN CORPUSCULAR HGB CONC 32.4 g/dL (31-35); MEAN CORPUSCULAR VOLUME 98.3 fL (81-99); MONOCYTES # (AUTO) 0.6 (0.2-0.8); MONOCYTES % 10.3 % (4.4-11.3); PLATELET COUNT 126 x10e3/uL (140-360); RED BLOOD COUNT 4.18 x10e6/uL (3.6-5.1); RED CELL DISTRIBUTION WIDTH 13.2 % (11.7-14.4)
[2021-09-04] MEDS ORDERED: ALBUTEROL SULFATE HFA 8GM INHALATION AEROSOL INH PRN (11:45)
[2021-09-04 11:46] LABS: B-TYPE NATRIURETIC PEPTIDE2 21.5 pg/mL (0-100)
[2021-09-04 11:52] LABS: INR 0.84; PROTHROMBIN TIME 12.2 seconds (11.9-14.5)
[2021-09-04 11:53] LABS: PARTIAL THROMBOPLASTIN TIME 26.3 seconds (23.8-35.5)
[2021-09-04 11:58] LABS: ALBUMIN 4.2 g/dL (3.5-5.0); ALBUMIN/GLOBULIN RATIO 1.3 (0.8-2.0); ANION GAP 14.8 mmol/L (8-16); CALCIUM 10.1 mg/dL (8.4-10.2); CREATININE, SERUM 2.34 mg/dL (0.57-1.11); MAGNESIUM 2.1 MG/DL (1.3-2.1); POTASSIUM 3.8 mmol/L (3.5-5.1)
[2021-09-04 12:32] LABS: CLARITY,URINE CLEAR (CLEAR); COLOR,URINE YELLOW (YELLOW); KETONES,URINE NEGATIVE (NEGATIVE); LEUKOCYTE ESTERASE ,URINE NEGATIVE (NEGATIVE); NITRITE,URINE NEGATIVE (NEGATIVE); PROTEIN,URINE DIPSTICK NEGATIVE (NEGATIVE); URINE UROBILINOGEN 0.2 mg/dL (0.2 - 1)
[2021-09-04 12:56] LABS: BACTERIA,URINE FEW /HPF; EPITHELIAL CELLS,URINE MODERATE /LPF; RBC,URINE 0-5 /HPF (0-5); WBC,URINE (MAN) 0-5 /HPF (0-5)
[2021-09-04 12:57] LABS: YEAST,URINE MODERATE
[2021-09-04] MEDS ORDERED: REMDESIVIR IV ONE (14:00)
[2021-09-04] MEDS ORDERED: SODIUM CHLORIDE 0.9% IV ONE (14:00)
[2021-09-04] MEDS: ENOXAPARIN 30 MG/0.3 ML SYR SC SCH (14:20)
[2021-09-04] MEDS: SODIUM CHLORIDE 0.9% 1000ML 1,000 ML IV SCH ×2 (14:20→22:10)
[2021-09-04] MEDS: ASCORBIC ACID 500 MG TAB PO SCH (14:20)
[2021-09-04 16:29] LABS: ABG PH 7.28 (7.35-7.45)
[2021-09-04 16:30] LABS: ABG HCO3 37 mmol/L (22-26); ABG PCO2 77 mmHg (35-45); ABG PO2 100 mmHg (80-105); ABG TCO2 39
[2021-09-04] MEDS: IPRATROPIUM/ALBUTEROL SULFATE 4 GM INH INH SCH (19:00)
[2021-09-04 19:10] LABS: CREATINE KINASE MB 1.6 ng/mL (0-5.0)
[2021-09-05] VITALS (7 sets, daily range): BP systolic 82–122; BP diastolic 52–71
[2021-09-05] MEDS: IPRATROPIUM/ALBUTEROL SULFATE 4 GM INH INH SCH ×2 (01:00→07:00)
[2021-09-05 01:40] LABS: CREATINE KINASE MB 4.2 ng/mL (0-5.0)
[2021-09-05 01:50] LABS: ANION GAP 11.8 mmol/L (8-16); CALCIUM 9.1 mg/dL (8.4-10.2); CREATININE, SERUM 1.42 mg/dL (0.57-1.11); POTASSIUM 3.8 mmol/L (3.5-5.1)
[2021-09-05 06:29] LABS: ABG HCO3 36 mmol/L (22-26); ABG PCO2 61 mmHg (35-45); ABG PH 7.38 (7.35-7.45); ABG PO2 99 mmHg (80-105); ABG TCO2 38
[2021-09-05] MEDS: ASCORBIC ACID 500 MG TAB PO SCH ×2 (09:00→17:22)
[2021-09-05] MEDS: DEXAMETHASONE SOD PHOS 10 MG/1 ML VIAL IV SCH (09:00)
[2021-09-05] MEDS: CEFTRIAXONE 2 GM in SODIUM CHLORIDE 0.9% 100 ML IV SCH ×2 (09:00)
[2021-09-05] MEDS: ZINC SULFATE 50 MG CAP PO SCH (09:00)
[2021-09-05] MEDS: ENOXAPARIN 30 MG/0.3 ML SYR SC SCH ×2 (09:00→21:00)
[2021-09-05 11:58] LABS: EOSINOPHILS % 0.3 % (0.0-6.0); HEMATOCRIT 34.6 % (34.2-44.1); HEMOGLOBIN 11.2 g/dL (12.0-16.0); LYMPHOCYTES # (AUTO) 0.3 (1.0-3.2); MEAN CORPUSCULAR HEMOGLOBIN 31.9 pg (28-32); MEAN CORPUSCULAR HGB CONC 32.4 g/dL (31-35); MEAN CORPUSCULAR VOLUME 98.6 fL (81-99); MONOCYTES # (AUTO) 0.3 (0.2-0.8); MONOCYTES % 7.1 % (4.4-11.3); NEUTROPHILS # (AUTO) 3.1 (2.1-6.9); NEUTROPHILS % 83.6 % (38.7-80.0); PLATELET COUNT 102 x10e3/uL (140-360); RED BLOOD COUNT 3.51 x10e6/uL (3.6-5.1); RED CELL DISTRIBUTION WIDTH 13.2 % (11.7-14.4)
[2021-09-05 12:17] LABS: ALBUMIN/GLOBULIN RATIO 1.1 (0.8-2.0); CALCIUM 8.8 mg/dL (8.4-10.2); CREATININE, SERUM 1.21 mg/dL (0.57-1.11)
[2021-09-05 12:24] LABS: CREATINE KINASE MB 2.4 ng/mL (0-5.0)
[2021-09-05] MEDS: REMDESIVIR 100MG 100 MG in SODIUM CHLORIDE 0.9% 100 ML IV SCH (13:47)
[2021-09-05] MEDS ORDERED: REMDESIVIR 100MG 100 MG in SODIUM CHLORIDE 0.9% 100 ML 100 ML IV SCH (14:00)
[2021-09-05] MEDS: ZOLPIDEM TARTRATE 10 MG TAB PO SCH (21:00)
[2021-09-05] MEDS ORDERED: ZOLPIDEM TARTRATE 10 MG TAB ONE (21:14)
[2021-09-06] VITALS (7 sets, daily range): BP systolic 91–136; BP diastolic 50–96
[2021-09-06] MEDS: IPRATROPIUM/ALBUTEROL SULFATE 4 GM INH INH SCH ×4 (00:34→20:30)
[2021-09-06 06:41] LABS: BASOPHILS % 0.3 % (0.0-1.0); EOSINOPHILS % 0.5 % (0.0-6.0); HEMATOCRIT 33.7 % (34.2-44.1); HEMOGLOBIN 11.2 g/dL (12.0-16.0); LYMPHOCYTES # (AUTO) 0.9 (1.0-3.2); MEAN CORPUSCULAR HEMOGLOBIN 32.1 pg (28-32); MEAN CORPUSCULAR HGB CONC 33.2 g/dL (31-35); MEAN CORPUSCULAR VOLUME 96.6 fL (81-99); MONOCYTES # (AUTO) 0.4 (0.2-0.8); MONOCYTES % 9.8 % (4.4-11.3); NEUTROPHILS # (AUTO) 2.5 (2.1-6.9); NEUTROPHILS % 66.1 % (38.7-80.0); PLATELET COUNT 101 x10e3/uL (140-360); RED BLOOD COUNT 3.49 x10e6/uL (3.6-5.1)
[2021-09-06 07:10] LABS: ALBUMIN 2.9 g/dL (3.5-5.0); ALBUMIN/GLOBULIN RATIO 1.1 (0.8-2.0); ANION GAP 10.5 mmol/L (8-16); CALCIUM 8.9 mg/dL (8.4-10.2); CREATININE, SERUM 1.1 mg/dL (0.57-1.11); POTASSIUM 3.5 mmol/L (3.5-5.1)
[2021-09-06] MEDS: ASCORBIC ACID 500 MG TAB PO SCH ×2 (09:26→16:06)
[2021-09-06] MEDS: DEXAMETHASONE SOD PHOS 10 MG/1 ML VIAL IV SCH (09:26)
[2021-09-06] MEDS: CEFTRIAXONE 2 GM in SODIUM CHLORIDE 0.9% 100 ML IV SCH (09:26)
[2021-09-06] MEDS: ENOXAPARIN 30 MG/0.3 ML SYR SC SCH ×2 (09:26→21:24)
[2021-09-06] MEDS: ZINC SULFATE 50 MG CAP PO SCH (09:26)
[2021-09-06] MEDS ORDERED: ALBUTEROL SULFATE HFA 8GM INHALATION AEROSOL INH PRN (11:30)
[2021-09-06] MEDS ORDERED: POTASSIUM CHLORIDE 20MEQ/100ML 100 ML IV ONE (13:15)
[2021-09-06] MEDS: REMDESIVIR 100MG 100 MG in SODIUM CHLORIDE 0.9% 100 ML IV SCH ×2 (14:21→15:00)
[2021-09-06] MEDS: ZOLPIDEM TARTRATE 10 MG TAB PO SCH (21:24)
[2021-09-07] MEDS: IPRATROPIUM/ALBUTEROL SULFATE 4 GM INH INH SCH ×4 (01:20→19:40)
[2021-09-07 04:00] VITALS: BP 112/70
[2021-09-07 07:57] VITALS: BP 112/70
[2021-09-07] MEDS ORDERED: AZITHROMYCIN 250 MG TAB PO SCH (09:00)
[2021-09-07 09:16] VITALS: BP 120/53
[2021-09-07] MEDS: ENOXAPARIN 30 MG/0.3 ML SYR SC SCH ×2 (09:35→20:09)
[2021-09-07] MEDS: ASCORBIC ACID 500 MG TAB PO SCH ×2 (09:35→15:57)
[2021-09-07] MEDS: CEFTRIAXONE 2 GM in SODIUM CHLORIDE 0.9% 100 ML IV SCH (09:35)
[2021-09-07] MEDS: DEXAMETHASONE SOD PHOS 10 MG/1 ML VIAL IV SCH (09:35)
[2021-09-07] MEDS: ZINC SULFATE 50 MG CAP PO SCH (09:35)
[2021-09-07 11:11] LABS: BASOPHILS % 0.3 % (0.0-1.0); EOSINOPHILS % 0.8 % (0.0-6.0); HEMATOCRIT 32.4 % (34.2-44.1); HEMOGLOBIN 10.7 g/dL (12.0-16.0); LYMPHOCYTES # (AUTO) 0.7 (1.0-3.2); MEAN CORPUSCULAR HEMOGLOBIN 31.9 pg (28-32); MEAN CORPUSCULAR VOLUME 96.7 fL (81-99); MONOCYTES # (AUTO) 0.3 (0.2-0.8); MONOCYTES % 7.4 % (4.4-11.3); NEUTROPHILS # (AUTO) 2.7 (2.1-6.9); NEUTROPHILS % 73.2 % (38.7-80.0); PLATELET COUNT 104 x10e3/uL (140-360); RED BLOOD COUNT 3.35 x10e6/uL (3.6-5.1)
[2021-09-07 11:31] LABS: ALBUMIN 2.8 g/dL (3.5-5.0); ALBUMIN/GLOBULIN RATIO 1.1 (0.8-2.0); ANION GAP 8.5 mmol/L (8-16); CALCIUM 8.7 mg/dL (8.4-10.2); CREATININE, SERUM 0.97 mg/dL (0.57-1.11); POTASSIUM 3.5 mmol/L (3.5-5.1)
[2021-09-07 12:38] VITALS: BP 131/69
[2021-09-07] MEDS: REMDESIVIR 100MG 100 MG in SODIUM CHLORIDE 0.9% 100 ML IV SCH (14:00)
[2021-09-07 16:46] VITALS: BP 110/71
[2021-09-07 20:00] VITALS: BP 109/67
[2021-09-07] MEDS: ZOLPIDEM TARTRATE 10 MG TAB PO SCH (20:09)
[2021-09-08] VITALS (8 sets, daily range): BP systolic 90–125; BP diastolic 62–76
[2021-09-08] MEDS: IPRATROPIUM/ALBUTEROL SULFATE 4 GM INH INH SCH ×4 (01:00→19:50)
[2021-09-08] MEDS: ASCORBIC ACID 500 MG TAB PO SCH ×2 (08:30→17:30)
[2021-09-08] MEDS: DEXAMETHASONE SOD PHOS 10 MG/1 ML VIAL IV SCH (08:30)
[2021-09-08] MEDS: ZINC SULFATE 50 MG CAP PO SCH (08:30)
[2021-09-08] MEDS: ENOXAPARIN 30 MG/0.3 ML SYR SC SCH ×2 (08:30→21:30)
[2021-09-08 09:29] LABS: BASOPHILS % 0.5 % (0.0-1.0); EOSINOPHILS # (AUTO) 0.1 (0.0-0.4); EOSINOPHILS % 1.4 % (0.0-6.0); HEMATOCRIT 34.5 % (34.2-44.1); HEMOGLOBIN 11.3 g/dL (12.0-16.0); LYMPHOCYTES % 23.3 % (18.0-39.1); MEAN CORPUSCULAR HEMOGLOBIN 31.8 pg (28-32); MEAN CORPUSCULAR HGB CONC 32.8 g/dL (31-35); MEAN CORPUSCULAR VOLUME 97.2 fL (81-99); MONOCYTES # (AUTO) 0.3 (0.2-0.8); MONOCYTES % 6.5 % (4.4-11.3); NEUTROPHILS # (AUTO) 2.8 (2.1-6.9); NEUTROPHILS % 68.3 % (38.7-80.0); PLATELET COUNT 99 x10e3/uL (140-360); RED BLOOD COUNT 3.55 x10e6/uL (3.6-5.1); RED CELL DISTRIBUTION WIDTH 13.1 % (11.7-14.4)
[2021-09-08 10:08] LABS: ALBUMIN 3.1 g/dL (3.5-5.0); ALBUMIN/GLOBULIN RATIO 1.3 (0.8-2.0); ANION GAP 9.5 mmol/L (8-16); CALCIUM 8.7 mg/dL (8.4-10.2); CREATININE, SERUM 1.05 mg/dL (0.57-1.11); POTASSIUM 3.5 mmol/L (3.5-5.1)
[2021-09-08] MEDS: REMDESIVIR 100MG 100 MG in SODIUM CHLORIDE 0.9% 100 ML IV SCH (13:44)
[2021-09-08] MEDS: ZOLPIDEM TARTRATE 10 MG TAB PO SCH (21:30)
[2021-09-09] MEDS: IPRATROPIUM/ALBUTEROL SULFATE 4 GM INH INH SCH ×3 (02:40→13:00)
[2021-09-09 04:00] VITALS: BP 107/64
[2021-09-09 06:27] LABS: BASOPHILS % 0.2 % (0.0-1.0); EOSINOPHILS # (AUTO) 0.1 (0.0-0.4); EOSINOPHILS % 1.2 % (0.0-6.0); HEMATOCRIT 32.5 % (34.2-44.1); HEMOGLOBIN 10.5 g/dL (12.0-16.0); LYMPHOCYTES # (AUTO) 1.2 (1.0-3.2); LYMPHOCYTES % 23.8 % (18.0-39.1); MEAN CORPUSCULAR HEMOGLOBIN 31.5 pg (28-32); MEAN CORPUSCULAR HGB CONC 32.3 g/dL (31-35); MEAN CORPUSCULAR VOLUME 97.6 fL (81-99); MONOCYTES # (AUTO) 0.4 (0.2-0.8); MONOCYTES % 8.1 % (4.4-11.3); NEUTROPHILS # (AUTO) 3.2 (2.1-6.9); NEUTROPHILS % 66.5 % (38.7-80.0); PLATELET COUNT 121 x10e3/uL (140-360); RED BLOOD COUNT 3.33 x10e6/uL (3.6-5.1); RED CELL DISTRIBUTION WIDTH 13.3 % (11.7-14.4)
[2021-09-09 07:00] LABS: ALBUMIN 2.8 g/dL (3.5-5.0); ALBUMIN/GLOBULIN RATIO 1.2 (0.8-2.0); ANION GAP 8.3 mmol/L (8-16); CALCIUM 8.3 mg/dL (8.4-10.2); CREATININE, SERUM 0.85 mg/dL (0.57-1.11); POTASSIUM 4.3 mmol/L (3.5-5.1)
[2021-09-09 08:31] VITALS: BP 118/68
[2021-09-09] MEDS: ENOXAPARIN 30 MG/0.3 ML SYR SC SCH (08:44)
[2021-09-09] MEDS: DEXAMETHASONE SOD PHOS 10 MG/1 ML VIAL IV SCH (08:44)
[2021-09-09] MEDS: ASCORBIC ACID 500 MG TAB PO SCH ×2 (08:44→16:44)
[2021-09-09] MEDS: ZINC SULFATE 50 MG CAP PO SCH (08:44)
[2021-09-09 09:00] VITALS: BP 118/68
[2021-09-09 12:08] VITALS: BP 110/62
[2021-09-09 15:45] VITALS: BP 103/64
== END 2021-09-09 18:33 | disposition home or self-care (01) | DRG 177 ==
LOC: ER 11:00 → ERHOLD 13:24 → IMCU 09-06 13:49
PROVIDERS: ADMIT Internal Medicine; ATTEND Internal Medicine
PROC: 8E0ZXY6 Isolation (ICD-10-PCS; principal; 2021-09-04)
PROC: 02HV33Z Insertion of Infusion Device into Superior Vena Cava, Percutaneous Approach (ICD-10-PCS; 2021-09-04)
PROC: XW043E5 Introduction of Remdesivir Anti-infective into Central Vein, Percutaneous Approach, New Technology Group 5 (ICD-10-PCS; 2021-09-04)
DX: U07.1 COVID-19 (principal); J12.82 Pneumonia due to coronavirus disease 2019; J96.22 Acute and chronic respiratory failure with hypercapnia; J96.21 Acute and chronic respiratory failure with hypoxia; N17.0 Acute kidney failure with tubular necrosis; J44.1 Chronic obstructive pulmonary disease with (acute) exacerbation; E44.0 Moderate protein-calorie malnutrition; D69.59 Other secondary thrombocytopenia; F17.200 Nicotine dependence, unspecified, uncomplicated; I12.9 Hypertensive chronic kidney disease with stage 1 through stage 4 chronic kidney disease, or unspecified chronic kidney disease; N18.30 Chronic kidney disease, stage 3 unspecified; Z68.22 Body mass index [BMI] 22.0-22.9, adult; Z99.81 Dependence on supplemental oxygen; M19.90 Unspecified osteoarthritis, unspecified site
CPT/HCPCS: 36415; 36569; 36600; 71045; 76770; 80048; 80053; 81001; 82550; 82553; 82805; 83605; 83735; 83880; 84484; 85025; 85610; 85730; 87040; 93005; 94664; 94799; 99285; J0456; J0696; J1100; J1650; J3480; J7030; J7050; U0002

== ENCOUNTER 2022-12-16 10:24 | Inpatient (IN) | payer MEDICARE ==
[~2022-12-16] VITALS: Ht 175.3 cm; Wt 48.5 kg
[~2022-12-16 10:24] MED LIST changes: -DIAZEPAM10 MG; +DIAZEPAM10 MG PO
[2022-12-16] MEDS ORDERED: SODIUM CHLORIDE FLUSH 10 ML SYR IV PRN (10:45)
[2022-12-16] MEDS ORDERED: METHYLPREDNISOLONE SOD SUCC 125 MG/2ML VIAL IV ONE (10:45)
[2022-12-16] MEDS ORDERED: ALBUTEROL/IPRATROPIUM 3 ML NEB NEB ONE (10:45)
[2022-12-16 11:03] LABS: ALANINE AMINOTRANSFERASE 32 IU/L (0-55); ALBUMIN/GLOBULIN RATIO 1.3 (0.8-2.0); ALKALINE PHOSPHATASE 64 IU/L (40-150); ANION GAP 17.2 mmol/L (8-16); BLOOD UREA NITROGEN 21 mg/dL (7-26); BUN/CREATININE RATIO 15 (6-25); CALCIUM 9.6 mg/dL (8.4-10.2); CARBON DIOXIDE 31 mmol/L (22-29); CHLORIDE 83 mmol/L (98-107); CREATININE, SERUM 1.44 mg/dL (0.57-1.11); GLUCOSE 91 mg/dL (74-118); POTASSIUM 4.2 mmol/L (3.5-5.1); SODIUM 127 mmol/L (136-145)
[2022-12-16 11:21] LABS: BASOPHILS % 0.6 % (0.0-1.0); EOSINOPHILS # (AUTO) 0.1 (0.0-0.4); EOSINOPHILS % 2.3 % (0.0-6.0); HEMATOCRIT 32.2 % (34.2-44.1); HEMOGLOBIN 11.2 g/dL (12.0-16.0); LYMPHOCYTES # (AUTO) 0.7 (1.0-3.2); MEAN CORPUSCULAR HEMOGLOBIN 31.5 pg (28-32); MEAN CORPUSCULAR HGB CONC 34.8 g/dL (31-35); MEAN CORPUSCULAR VOLUME 90.7 fL (81-99); MONOCYTES # (AUTO) 0.5 (0.2-0.8); MONOCYTES % 10.9 % (4.4-11.3); NEUTROPHILS # (AUTO) 3.5 (2.1-6.9); PLATELET COUNT 143 x10e3/uL (140-360); RED BLOOD COUNT 3.55 x10e6/uL (3.6-5.1); RED CELL DISTRIBUTION WIDTH 11.8 % (11.7-14.4)
[2022-12-16] MEDS ORDERED: LORAZEPAM INJ 2 MG/ML VIAL IV ONE (11:45)
[2022-12-16] MEDS ORDERED: ASPIRIN 81 MG CHEW TAB PO ONE ×2 (12:00)
[2022-12-16] MEDS ORDERED: SODIUM CHLORIDE FLUSH 10 ML SYR INJ PRN (12:00)
[2022-12-16] MEDS ORDERED: ONDANSETRON HCL INJ 2MG/ML 2ML 2 MG/ML VIAL IV PRN (12:00)
[2022-12-16 12:22] LABS: ABG HCO3 13 mmol/L (22-26); ABG PCO2 47 mmHg (35-45); ABG PO2 149 mmHg (80-105); ABG TCO2 37
[2022-12-16 18:39] LABS: CREATINE KINASE 362 IU/L (29-168)
[2022-12-16 20:00] VITALS: BP 107/66
[2022-12-16 20:40] VITALS: BP 107/66
[2022-12-16] MEDS ORDERED: FUROSEMIDE40 MG PO (21:20)
[2022-12-16] MEDS: ZOLPIDEM TARTRATE 10 MG TAB PO PRN (22:38)
[2022-12-16] MEDS: DIAZEPAM 5 MG TAB PO SCH (22:38)
[2022-12-16 23:25] VITALS: BP 107/66
[2022-12-17] VITALS (8 sets, daily range): BP systolic 98–128; BP diastolic 51–71
[2022-12-17 05:57] LABS: BASOPHILS % 0.1 % (0.0-1.0); EOSINOPHILS % 0.1 % (0.0-6.0); HEMATOCRIT 26.3 % (34.2-44.1); HEMOGLOBIN 9.4 g/dL (12.0-16.0); LYMPHOCYTES # (AUTO) 0.6 (1.0-3.2); LYMPHOCYTES % 9.3 % (18.0-39.1); MEAN CORPUSCULAR HEMOGLOBIN 31.4 pg (28-32); MEAN CORPUSCULAR HGB CONC 35.7 g/dL (31-35); MONOCYTES # (AUTO) 0.8 (0.2-0.8); MONOCYTES % 11.8 % (4.4-11.3); NEUTROPHILS # (AUTO) 5.2 (2.1-6.9); NEUTROPHILS % 78.3 % (38.7-80.0); PLATELET COUNT 128 x10e3/uL (140-360); RED BLOOD COUNT 2.99 x10e6/uL (3.6-5.1); RED CELL DISTRIBUTION WIDTH 11.6 % (11.7-14.4)
[2022-12-17] MEDS: BISACODYL 5 MG TAB EC PO SCH ×2 (06:04→12:00)
[2022-12-17 06:18] LABS: ALBUMIN 3.4 g/dL (3.5-5.0); ALBUMIN/GLOBULIN RATIO 1.3 (0.8-2.0); CALCIUM 8.7 mg/dL (8.4-10.2); CREATININE, SERUM 1.25 mg/dL (0.57-1.11)
[2022-12-17 06:44] LABS: CREATINE KINASE 359 IU/L (29-168)
[2022-12-17] MEDS: LISINOPRIL 20 MG TAB PO SCH (09:35)
[2022-12-17] MEDS: HYDROCHLOROTHIAZIDE 25 MG TAB PO SCH (09:35)
[2022-12-17] MEDS: ASPIRIN 81 MG ENTERIC COATED PO SCH (09:35)
[2022-12-17] MEDS: FUROSEMIDE 40 MG TAB PO SCH (09:36)
[2022-12-17] MEDS: DIAZEPAM 5 MG TAB PO SCH ×2 (09:36→21:52)
[2022-12-17] MEDS: SODIUM CHLORIDE 0.9% 1000ML 1,000 ML IV SCH ×2 (10:29→20:15)
[2022-12-17] MEDS ORDERED: ONDANSETRON HCL 4 MG ORAL DISINTEGRATING TAB PO PRN (13:00)
[2022-12-17 15:10] LABS: CREATINE KINASE 302 IU/L (29-168)
[2022-12-17] MEDS ORDERED: BISACODYL 5 MG TAB EC PO PRN (16:45)
[2022-12-17] MEDS: ZOLPIDEM TARTRATE 10 MG TAB PO PRN (21:52)
[2022-12-18] VITALS (8 sets, daily range): BP systolic 105–134; BP diastolic 56–78
[2022-12-18] MEDS: SODIUM CHLORIDE 0.9% 1000ML 1,000 ML IV SCH ×2 (04:30→13:50)
[2022-12-18 07:26] LABS: BASOPHILS % 0.7 % (0.0-1.0); EOSINOPHILS # (AUTO) 0.2 (0.0-0.4); HEMATOCRIT 31.5 % (34.2-44.1); HEMOGLOBIN 10.6 g/dL (12.0-16.0); LYMPHOCYTES # (AUTO) 0.8 (1.0-3.2); LYMPHOCYTES % 19.4 % (18.0-39.1); MEAN CORPUSCULAR HEMOGLOBIN 31.4 pg (28-32); MEAN CORPUSCULAR HGB CONC 33.7 g/dL (31-35); MEAN CORPUSCULAR VOLUME 93.2 fL (81-99); MONOCYTES # (AUTO) 0.5 (0.2-0.8); MONOCYTES % 11.7 % (4.4-11.3); NEUTROPHILS # (AUTO) 2.6 (2.1-6.9); PLATELET COUNT 143 x10e3/uL (140-360); RED BLOOD COUNT 3.38 x10e6/uL (3.6-5.1); RED CELL DISTRIBUTION WIDTH 11.9 % (11.7-14.4)
[2022-12-18 07:55] LABS: ANION GAP 10.5 mmol/L (8-16); CALCIUM 8.2 mg/dL (8.4-10.2); CREATININE, SERUM 1.2 mg/dL (0.57-1.11); POTASSIUM 3.5 mmol/L (3.5-5.1)
[2022-12-18] MEDS: ALBUTEROL SULF 0.083% NEB SOLN 3 ML NEB NEB SCH ×6 (08:03→23:25)
[2022-12-18] MEDS: ASPIRIN 81 MG ENTERIC COATED PO SCH (10:21)
[2022-12-18] MEDS: HYDROCHLOROTHIAZIDE 25 MG TAB PO SCH (10:21)
[2022-12-18] MEDS: LISINOPRIL 20 MG TAB PO SCH (10:21)
[2022-12-18] MEDS: DIAZEPAM 5 MG TAB PO SCH ×2 (10:21→21:23)
[2022-12-18] MEDS: FUROSEMIDE 40 MG TAB PO SCH (10:25)
[2022-12-18] MEDS: ZOLPIDEM TARTRATE 10 MG TAB PO PRN (21:41)
[2022-12-19] VITALS (7 sets, daily range): BP systolic 104–113; BP diastolic 50–75
[2022-12-19] MEDS: SODIUM CHLORIDE 0.9% 1000ML 1,000 ML IV SCH ×3 (03:33→20:56)
[2022-12-19] MEDS: ALBUTEROL SULF 0.083% NEB SOLN 3 ML NEB NEB SCH ×6 (03:35→23:25)
[2022-12-19 07:37] LABS: ALBUMIN 2.9 g/dL (3.5-5.0); ALBUMIN/GLOBULIN RATIO 1.3 (0.8-2.0); ANION GAP 11.3 mmol/L (8-16); CALCIUM 8.1 mg/dL (8.4-10.2); CREATININE, SERUM 1.22 mg/dL (0.57-1.11); POTASSIUM 3.3 mmol/L (3.5-5.1)
[2022-12-19] MEDS: LISINOPRIL 20 MG TAB PO SCH (12:07)
[2022-12-19] MEDS: DIAZEPAM 5 MG TAB PO SCH ×2 (12:07→20:56)
[2022-12-19] MEDS: HYDROCHLOROTHIAZIDE 25 MG TAB PO SCH (12:08)
[2022-12-19] MEDS: ASPIRIN 81 MG ENTERIC COATED PO SCH (12:08)
[2022-12-19] MEDS: FUROSEMIDE 40 MG TAB PO SCH (12:17)
[2022-12-19] MEDS: ZOLPIDEM TARTRATE 10 MG TAB PO PRN (20:56)
[2022-12-20 00:25] VITALS: BP 108/48
[2022-12-20] MEDS: ALBUTEROL SULF 0.083% NEB SOLN 3 ML NEB NEB SCH ×3 (03:40→10:45)
[2022-12-20 03:55] VITALS: BP 102/66
[2022-12-20] MEDS: SODIUM CHLORIDE 0.9% 1000ML 1,000 ML IV SCH (05:59)
[2022-12-20 06:14] LABS: BASOPHILS % 0.5 % (0.0-1.0); EOSINOPHILS # (AUTO) 0.3 (0.0-0.4); EOSINOPHILS % 6.4 % (0.0-6.0); HEMOGLOBIN 9.6 g/dL (12.0-16.0); LYMPHOCYTES # (AUTO) 0.8 (1.0-3.2); LYMPHOCYTES % 20.2 % (18.0-39.1); MEAN CORPUSCULAR HEMOGLOBIN 31.7 pg (28-32); MEAN CORPUSCULAR HGB CONC 34.3 g/dL (31-35); MEAN CORPUSCULAR VOLUME 92.4 fL (81-99); MONOCYTES # (AUTO) 0.5 (0.2-0.8); NEUTROPHILS # (AUTO) 2.4 (2.1-6.9); NEUTROPHILS % 60.6 % (38.7-80.0); PLATELET COUNT 153 x10e3/uL (140-360); RED BLOOD COUNT 3.03 x10e6/uL (3.6-5.1); RED CELL DISTRIBUTION WIDTH 12.4 % (11.7-14.4)
[2022-12-20 06:39] LABS: ALBUMIN 2.9 g/dL (3.5-5.0); ALBUMIN/GLOBULIN RATIO 1.3 (0.8-2.0); ANION GAP 9.7 mmol/L (8-16); CREATININE, SERUM 1.12 mg/dL (0.57-1.11); MAGNESIUM 1.3 MG/DL (1.3-2.1); POTASSIUM 3.7 mmol/L (3.5-5.1)
[2022-12-20 08:35] VITALS: BP 124/63
[2022-12-20] MEDS ORDERED: DILTIAZEM HCL ER 120 MG CAP PO SCH (09:00)
[2022-12-20] MEDS: FUROSEMIDE 40 MG TAB PO SCH (10:00)
[2022-12-20] MEDS: DIAZEPAM 5 MG TAB PO SCH (10:01)
[2022-12-20] MEDS: HYDROCHLOROTHIAZIDE 25 MG TAB PO SCH (10:01)
[2022-12-20] MEDS: ASPIRIN 81 MG ENTERIC COATED PO SCH (10:02)
[2022-12-20] MEDS: LISINOPRIL 20 MG TAB PO SCH (10:03)
[2022-12-20 12:03] VITALS: BP 138/77
[2022-12-20] MEDS ORDERED: CARDIZEM60 MG PO (13:16)
== END 2022-12-20 14:10 | disposition home or self-care (01) | DRG 190 ==
LOC: ER 10:32 → ERHOLD 11:54 → MED/SURG2 18:39 → OBSVTOIN 12-18 11:46
PROVIDERS: ADMIT Internal Medicine; ATTEND Internal Medicine
DX: J44.1 Chronic obstructive pulmonary disease with (acute) exacerbation (principal); E43 Unspecified severe protein-calorie malnutrition; J96.21 Acute and chronic respiratory failure with hypoxia; E87.1 Hypo-osmolality and hyponatremia; I48.92 Unspecified atrial flutter; Z68.1 Body mass index [BMI] 19.9 or less, adult; E86.0 Dehydration; F41.9 Anxiety disorder, unspecified; F32.A Depression, unspecified; I12.9 Hypertensive chronic kidney disease with stage 1 through stage 4 chronic kidney disease, or unspecified chronic kidney disease; N18.30 Chronic kidney disease, stage 3 unspecified; D63.1 Anemia in chronic kidney disease; I48.0 Paroxysmal atrial fibrillation; Z99.81 Dependence on supplemental oxygen
CPT/HCPCS: 36415; 36600; 71045; 80048; 80053; 80320; 82550; 82553; 82805; 83735; 83880; 84484; 85025; 93005; 93306; 94799; 99284; G0378; J2060; J2930; J7030

== ENCOUNTER 2024-02-20 09:06 | Inpatient (IN) | payer MEDICARE ==
[2024-02-20] VITALS (16 sets, daily range): BP systolic 142–167; BP diastolic 69–141; PULSE 70–108; RESP 18–28; TEMP 97.4–98.3; O2SAT 90–100
[~2024-02-20] VITALS: Ht 175.3 cm; Wt 45.8 kg
[~2024-02-20 09:06] MED LIST changes: +CARDIZEM60 MG PO; +FUROSEMIDE40 MG PO; +VITAMIN D3125 MCG PO
[2024-02-20] MEDS ORDERED: SODIUM CHLORIDE FLUSH 10 ML SYR IV PRN (09:15)
[2024-02-20] MEDS: ALBUTEROL/IPRATROPIUM 3 ML NEB NEB ONE (09:27)
[2024-02-20 09:43] LABS: BASOPHILS % 0.3 % (0.0-1.0); EOSINOPHILS % 0.2 % (0.0-6.0); HEMATOCRIT 35.6 % (34.2-44.1); HEMOGLOBIN 11.2 g/dL (12.0-16.0); LYMPHOCYTES # (AUTO) 0.6 (1.0-3.2); LYMPHOCYTES % 5.4 % (18.0-39.1); MEAN CORPUSCULAR HGB CONC 31.5 g/dL (31-35); MEAN CORPUSCULAR VOLUME 101.7 fL (81-99); MONOCYTES # (AUTO) 0.8 (0.2-0.8); MONOCYTES % 6.7 % (4.4-11.3); NEUTROPHILS # (AUTO) 10.4 (2.1-6.9); NEUTROPHILS % 86.8 % (38.7-80.0); PLATELET COUNT 192 x10e3/uL (140-360); RED CELL DISTRIBUTION WIDTH 14.3 % (11.7-14.4); WHITE BLOOD COUNT 11.96 x10e3/uL (4.8-10.8)
[2024-02-20 10:04] LABS: ALBUMIN 4.1 g/dL (3.5-5.0); ALBUMIN/GLOBULIN RATIO 1.2 (0.8-2.0); BILIRUBIN,TOTAL 0.5 mg/dL (0.2-1.2); CALCIUM 10.2 mg/dL (8.4-10.2); CREATININE, SERUM 1.34 mg/dL (0.57-1.11); TOTAL PROTEIN 7.6 g/dL (6.5-8.1)
[2024-02-20 10:09] LABS: TROPONIN I 0.062 ng/mL (0-0.300)
[2024-02-20] MEDS: LEVOFLOXACIN 750MG/D5W 150ML 150 ML IV SCH (10:12)
[2024-02-20] MEDS: METHYLPREDNISOLONE SOD SUCC 125 MG/2ML VIAL IV ONE (10:13)
[2024-02-20] MEDS: SODIUM CHLORIDE 0.9% 1000ML 1,000 ML IV ONE (11:25)
[2024-02-20] MEDS ORDERED: IOPAMIDOL 370 MG/ML 100 ML INFUS..BTL INJ ONE (11:37)
[2024-02-20] MEDS ORDERED: SODIUM CHLORIDE FLUSH 10 ML SYR INJ PRN (12:30)
[2024-02-20] MEDS ORDERED: ONDANSETRON HCL INJ 2MG/ML 2ML 2 MG/ML VIAL IV PRN (12:30)
[2024-02-20] MEDS: METRONIDAZOLE 500MG/NS 100ML 100 ML IV ONE (12:56)
[2024-02-20] MEDS: MUPIROCIN 2% OINT 22 GM TUBE TOP SCH (12:57)
[2024-02-20] MEDS ORDERED: ALBUTEROL 90 MCG/ACT INHALER INH PRN (18:30)
[2024-02-21] VITALS (32 sets, daily range): BP systolic 116–152; BP diastolic 57–99; PULSE 48–116; RESP 18–27; TEMP 97.8–98.3; O2SAT 88–99
[2024-02-21] MEDS: ALBUTEROL/IPRATROPIUM 3 ML NEB NEB SCH (01:00)
[2024-02-21] MEDS: DILTIAZEM HCL CR 120MG TAB PO ONE (01:18)
[2024-02-21 06:03] LABS: BASOPHILS % 0.1 % (0.0-1.0); HEMATOCRIT 31.2 % (34.2-44.1); HEMOGLOBIN 9.6 g/dL (12.0-16.0); LYMPHOCYTES # (AUTO) 0.4 (1.0-3.2); LYMPHOCYTES % 4.5 % (18.0-39.1); MEAN CORPUSCULAR HEMOGLOBIN 31.2 pg (28-32); MEAN CORPUSCULAR HGB CONC 30.8 g/dL (31-35); MEAN CORPUSCULAR VOLUME 101.3 fL (81-99); MONOCYTES # (AUTO) 0.5 (0.2-0.8); MONOCYTES % 6.2 % (4.4-11.3); NEUTROPHILS # (AUTO) 7.5 (2.1-6.9); NEUTROPHILS % 88.4 % (38.7-80.0); PLATELET COUNT 149 x10e3/uL (140-360); RED BLOOD COUNT 3.08 x10e6/uL (3.6-5.1); RED CELL DISTRIBUTION WIDTH 14.3 % (11.7-14.4)
[2024-02-21 06:54] LABS: ALBUMIN 3.4 g/dL (3.5-5.0); ALBUMIN/GLOBULIN RATIO 1.3 (0.8-2.0); ANION GAP 10.4 mmol/L (8-16); BILIRUBIN,TOTAL 0.3 mg/dL (0.2-1.2); CREATININE, SERUM 1.21 mg/dL (0.57-1.11); TOTAL PROTEIN 6.1 g/dL (6.5-8.1)
[2024-02-21 06:56] LABS: POTASSIUM 5.4 mmol/L (3.5-5.1)
[2024-02-21] MEDS: BUDESONIDE 0.25 MG/2 ML NEB NEB SCH (07:36)
[2024-02-21] MEDS: METHYLPREDNISOLONE SOD SUCC 40 MG/ML VIAL 1ML IV SCH (09:01)
[2024-02-21] MEDS: HEPARIN SOD (PORCINE) 5,000 UNIT/ML VIAL SC SCH (10:08)
[2024-02-21] MEDS: DILTIAZEM HCL CR 120MG TAB PO SCH (11:29)
[2024-02-21] MEDS: ZOLPIDEM TARTRATE 5 MG TAB PO ONE (21:25)
[2024-02-22] VITALS (24 sets, daily range): BP systolic 123–146; BP diastolic 57–92; PULSE 74–129; RESP 14–27; TEMP 98–98.4; O2SAT 92–100
[2024-02-22 06:47] LABS: BASOPHILS % 0.1 % (0.0-1.0); HEMATOCRIT 29.2 % (34.2-44.1); HEMOGLOBIN 9.6 g/dL (12.0-16.0); LYMPHOCYTES # (AUTO) 0.3 (1.0-3.2); LYMPHOCYTES % 3.8 % (18.0-39.1); MEAN CORPUSCULAR HEMOGLOBIN 31.7 pg (28-32); MEAN CORPUSCULAR HGB CONC 32.9 g/dL (31-35); MEAN CORPUSCULAR VOLUME 96.4 fL (81-99); MONOCYTES # (AUTO) 0.5 (0.2-0.8); MONOCYTES % 6.4 % (4.4-11.3); NEUTROPHILS # (AUTO) 7.5 (2.1-6.9); PLATELET COUNT 167 x10e3/uL (140-360); RED BLOOD COUNT 3.03 x10e6/uL (3.6-5.1); RED CELL DISTRIBUTION WIDTH 14.6 % (11.7-14.4); WHITE BLOOD COUNT 8.39 x10e3/uL (4.8-10.8)
[2024-02-22 07:08] LABS: ALBUMIN 3.2 g/dL (3.5-5.0); ALBUMIN/GLOBULIN RATIO 1.3 (0.8-2.0); ANION GAP 9.6 mmol/L (8-16); BILIRUBIN,TOTAL 0.2 mg/dL (0.2-1.2); CALCIUM 8.9 mg/dL (8.4-10.2); CREATININE, SERUM 1.47 mg/dL (0.57-1.11); POTASSIUM 4.6 mmol/L (3.5-5.1); TOTAL PROTEIN 5.6 g/dL (6.5-8.1)
[2024-02-22] MEDS: LEVOFLOXACIN 750MG/D5W 150ML 150 ML IV SCH (08:12)
[2024-02-22] MEDS: LEVALBUTEROL HCL SOLN NEBU 0.63 MG/3 ML NEB INH SCH (13:52)
[2024-02-22] MEDS: DILTIAZEM HCL CR 120MG TAB PO SCH (17:02)
[2024-02-22] MEDS: APIXABAN 5 MG TABLET PO SCH (17:02)
[2024-02-22] MEDS ORDERED: BUDESONIDE/FORMOTEROL 160/4.5MCG INHALER INH SCH (19:00)
[2024-02-22] MEDS: ZOLPIDEM TARTRATE 5 MG TAB PO PRN (21:14)
[2024-02-22] MEDS: METHYLPREDNISOLONE SOD SUCC 40 MG/ML VIAL 1ML IV SCH (21:14)
[2024-02-23] VITALS (30 sets, daily range): BP systolic 136–156; BP diastolic 72–91; PULSE 60–116; RESP 15–29; TEMP 97.6–99.2; O2SAT 89–100
[2024-02-23] MEDS: DILTIAZEM HCL 5 MG/ML 5 ML VIAL IV ONE (06:34)
[2024-02-23] MEDS: AMIODARONE HCL 150 MG/100 ML BAG IV ONE (07:54)
[2024-02-23] MEDS: AMIODARONE 900MG 500 ML IV SCH (08:08)
[2024-02-23 08:13] LABS: ANION GAP 14.2 mmol/L (8-16); CALCIUM 8.9 mg/dL (8.4-10.2); CREATININE, SERUM 1.38 mg/dL (0.57-1.11); POTASSIUM 4.2 mmol/L (3.5-5.1)
[2024-02-23] MEDS ORDERED: DILTIAZEM HCL 5 MG/ML 5 ML VIAL IV PRN (15:30)
[2024-02-24] VITALS (24 sets, daily range): BP systolic 118–146; BP diastolic 55–99; PULSE 45–92; RESP 14–30; TEMP 97.8–98.2; O2SAT 86–99
[2024-02-24 05:46] LABS: BASOPHILS % 0.1 % (0.0-1.0); HEMATOCRIT 31.9 % (34.2-44.1); HEMOGLOBIN 10.8 g/dL (12.0-16.0); LYMPHOCYTES # (AUTO) 0.3 (1.0-3.2); LYMPHOCYTES % 2.2 % (18.0-39.1); MEAN CORPUSCULAR HGB CONC 33.9 g/dL (31-35); MEAN CORPUSCULAR VOLUME 94.4 fL (81-99); MONOCYTES # (AUTO) 0.3 (0.2-0.8); MONOCYTES % 2.2 % (4.4-11.3); NEUTROPHILS # (AUTO) 11.4 (2.1-6.9); NEUTROPHILS % 95.1 % (38.7-80.0); PLATELET COUNT 144 x10e3/uL (140-360); RED BLOOD COUNT 3.38 x10e6/uL (3.6-5.1); RED CELL DISTRIBUTION WIDTH 15.2 % (11.7-14.4); WHITE BLOOD COUNT 12.04 x10e3/uL (4.8-10.8)
[2024-02-24] MEDS: AMIODARONE 900MG 500 ML IV ONE (06:03)
[2024-02-24 06:23] LABS: ALBUMIN 3.1 g/dL (3.5-5.0); ALBUMIN/GLOBULIN RATIO 1.3 (0.8-2.0); ANION GAP 11.6 mmol/L (8-16); BILIRUBIN,TOTAL 0.3 mg/dL (0.2-1.2); CALCIUM 8.4 mg/dL (8.4-10.2); CREATININE, SERUM 1.32 mg/dL (0.57-1.11); MAGNESIUM 1.7 MG/DL (1.3-2.1); POTASSIUM 4.6 mmol/L (3.5-5.1); TOTAL PROTEIN 5.5 g/dL (6.5-8.1)
[2024-02-24] MEDS: AMIODARONE HCL 200 MG TAB PO SCH (08:32)
[2024-02-24] MEDS: DIAZEPAM 5 MG TAB PO PRN (08:35)
[2024-02-24] MEDS ORDERED: AMIODARONE HCL 150 MG/100 ML BAG IV ONE (20:30)
[2024-02-24] MEDS ORDERED: AMIODARONE 900MG 900 MG in Premix Bag 1 BAG IV SCH (20:30)
[2024-02-25] VITALS (11 sets, daily range): BP systolic 102–145; BP diastolic 61–88; PULSE 57–108; RESP 17–20; TEMP 98–98.8; O2SAT 87–98
[2024-02-25 06:13] LABS: BASOPHILS % 0.1 % (0.0-1.0); HEMATOCRIT 33.2 % (34.2-44.1); HEMOGLOBIN 10.8 g/dL (12.0-16.0); LYMPHOCYTES # (AUTO) 0.3 (1.0-3.2); LYMPHOCYTES % 3.2 % (18.0-39.1); MEAN CORPUSCULAR HEMOGLOBIN 31.4 pg (28-32); MEAN CORPUSCULAR HGB CONC 32.5 g/dL (31-35); MEAN CORPUSCULAR VOLUME 96.5 fL (81-99); MONOCYTES # (AUTO) 0.2 (0.2-0.8); MONOCYTES % 1.9 % (4.4-11.3); NEUTROPHILS # (AUTO) 9.6 (2.1-6.9); NEUTROPHILS % 94.2 % (38.7-80.0); PLATELET COUNT 167 x10e3/uL (140-360); RED BLOOD COUNT 3.44 x10e6/uL (3.6-5.1); RED CELL DISTRIBUTION WIDTH 14.6 % (11.7-14.4); WHITE BLOOD COUNT 10.15 x10e3/uL (4.8-10.8)
[2024-02-25 06:38] LABS: ALBUMIN 3.2 g/dL (3.5-5.0); ALBUMIN/GLOBULIN RATIO 1.7 (0.8-2.0); ANION GAP 11.7 mmol/L (8-16); BILIRUBIN,TOTAL 0.4 mg/dL (0.2-1.2); CALCIUM 8.7 mg/dL (8.4-10.2); CREATININE, SERUM 1.34 mg/dL (0.57-1.11); MAGNESIUM 1.9 MG/DL (1.3-2.1); POTASSIUM 4.7 mmol/L (3.5-5.1); TOTAL PROTEIN 5.1 g/dL (6.5-8.1)
[2024-02-25] MEDS: LEVOFLOXACIN 750MG/D5W 150ML 150 ML IV SCH (14:55)
[2024-02-26] VITALS (7 sets, daily range): BP systolic 131–142; BP diastolic 60–75; PULSE 63–89; RESP 17–19; TEMP 98.4–98.5; O2SAT 93–97
[2024-02-26] MEDS: ONDANSETRON HCL 4 MG ORAL DISINTEGRATING TAB PO PRN (13:36)
[2024-02-27] MEDS ORDERED: PREDNISONE 20 MG TAB PO SCH (09:00)
[2024-02-27] MEDS ORDERED: LEVOFLOXACIN 250 MG TAB PO SCH (14:00)
== END 2024-02-26 13:30 | disposition home or self-care (01) | DRG 177 ==
LOC: ER 09:16 → ERHOLD 12:29 → ICU 15:16 → MED/SURG 02-24 20:01
PROVIDERS: ADMIT Internal Medicine; ATTEND Internal Medicine
DX: J69.0 Pneumonitis due to inhalation of food and vomit (principal); E43 Unspecified severe protein-calorie malnutrition; J96.21 Acute and chronic respiratory failure with hypoxia; J44.1 Chronic obstructive pulmonary disease with (acute) exacerbation; Z68.1 Body mass index [BMI] 19.9 or less, adult; I47.19 Other supraventricular tachycardia; N17.9 Acute kidney failure, unspecified; J44.0 Chronic obstructive pulmonary disease with (acute) lower respiratory infection; I44.1 Atrioventricular block, second degree; I12.9 Hypertensive chronic kidney disease with stage 1 through stage 4 chronic kidney disease, or unspecified chronic kidney disease; N18.32 Chronic kidney disease, stage 3b; I25.10 Atherosclerotic heart disease of native coronary artery without angina pectoris; I25.2 Old myocardial infarction; I48.0 Paroxysmal atrial fibrillation; I49.1 Atrial premature depolarization; F17.210 Nicotine dependence, cigarettes, uncomplicated; Z71.6 Tobacco abuse counseling; Z99.81 Dependence on supplemental oxygen; Z71.3 Dietary counseling and surveillance; D64.9 Anemia, unspecified; R53.81 Other malaise; F41.9 Anxiety disorder, unspecified; F32.A Depression, unspecified; Z11.52 Encounter for screening for COVID-19
CPT/HCPCS: 36415; 36569; 71045; 71260; 80048; 80053; 83605; 83735; 84443; 84484; 85025; 85379; 87040; 87070; 87205; 93005; 93306; 94640; 94760; 94799; 99252; 99284; J1644; J2919; J7030; Q0162; Q9967; U0002